=== PATIENT | female | born 1955 | race Caucasian/White ===

== ENCOUNTER → 2017-09-30 13:02 | Outpatient (CLI) | payer OTHER, SELFPAY ==
--- NOTE | 2017-09-30 13:19 | RAD_ITS ---
STUDY: X-RAY CHEST REASON FOR EXAM: Female, 62 years old. Cough and congestion TECHNIQUE: PA and lateral views of the chest. COMPARISON: None. FINDINGS: The lungs are clear and expanded. There is no demonstrated pleural abnormality. Normal size heart. Normal mediastinum and jose a. Normal visualized pulmonary arteries. Normal visualized aortic arch and descending thoracic aorta. There are diffuse degenerative changes of the visualized thoracic spine. Normal visualized ribs, clavicles, and shoulders. There is no demonstrated abnormality of the visualized soft tissue structures of the upper abdomen. RAD/Chest PA and Lateral IMPRESSION: No acute cardiopulmonary process. Electronically Signed: Elvira Santamaria MD at 23:13 EDT Tel , Service support ,
== END ==
PROVIDERS: Family Provider Family Medicine; PCP Family Medicine; Visit Provider Family Medicine
DX: R05 Cough (principal)
CPT/HCPCS: 71046

== ENCOUNTER → 2019-03-02 | Outpatient (CLI) | payer OTHER, SELFPAY ==
--- NOTE | 2019-03-02 11:16 | US_ITS ---
STUDY: THYROID ULTRASOUND REASON FOR EXAM: Female, 63 years old. Gena's thyromegaly TECHNIQUE: Ultrasound evaluation of the thyroid was performed with real-time and static doyle-scale imaging. COMPARISON: None. FINDINGS: RIGHT LOBE: The right lobe of the thyroid gland measures 5.0 x 1.3 x 1.8 cm. There is a homogeneous echotexture. There are no demonstrated solid, cystic or complex lesions. LEFT LOBE: The left lobe of the thyroid gland measures 2.8 x 1.7 x 1.7 cm. There is a homogeneous echotexture. There are no demonstrated solid, cystic or complex lesions. ISTHMUS: The isthmus measures 5 mm . The regional lymph nodes are normal. US/Thyroid IMPRESSION: Normal ultrasound examination of the thyroid. Electronically Signed: Mandi Yousif MD at 8:42 EDT Tel , Service support ,
== END | disposition home or self-care (01) ==
LOC: US 11:10
PROVIDERS: Family Provider Family Medicine; PCP Family Medicine; Referring Provider Family Medicine; Visit Provider Family Medicine
DX: E01.0 Iodine-deficiency related diffuse (endemic) goiter (principal)
CPT/HCPCS: 76536

== ENCOUNTER → 2019-06-18 06:55 | Outpatient (CLI) | payer OTHER, SELFPAY ==
[2019-05-16 11:39] VITALS: BMI 39.9
--- NOTE | 2019-06-18 06:56 | ECHOCS_ITS ---
Version 2 Reason For Study: A fib Procedure This was a 2D Doppler, Color Flow transthoracic echocardiogram. The study was technically difficult. Contrast injection was performed. Exam performed in department. Left Ventricle Based upon the 2D echocardiographic and contrast enhanced images obtained there appears to be grossly normal left ventricular size, wall motion, and systolic function. The estimated ejection fraction is 60 %. Unable to assess diastolic dysfunction. Right Ventricle Normal RV size. Normal systolic function. Atria The left atrium is mildly enlarged. Normal right atrium. No doppler evidence for ASD. Mitral Valve There is no mitral annular calcification. Normal mitral valve. Trivial mitral valve insufficiency. Tricuspid Valve Normal tricuspid valve. Mild tricuspid valve insufficiency. Right ventricular systolic pressure estimated to be 27 mmHg. Aortic Valve Trisinus/trileaflet aortic valve. Normal aortic valve. Pulmonic Valve The pulmonic valve is not well visualized. Great Vessels Normal sized aortic root. Pericardium/Pleural No pericardial effusion. Medication Diluted definity 3ml given slow IV push to enhance endocardial definition. MMode/2D Measurements & Calculations LVIDd: 3.9 cm IVSd: 0.83 cm LAV(MOD-bp): 76.6 ml LVIDs: 2.8 cm LVPWd: 1.1 cm RVDd: 2.8 cm FS: 28.0 % LAV(MOD-bp) Indexed: 31.9 ml/m2 LAV(MOD-sp2): 77.3 ml LAV(MOD-sp4): 75.4 ml LA dimension(2D): 3.9 cm LA A4 area: 22.7 cm2 RA A4 area: 14.5 cm2 Doppler Measurements & Calculations MV E max christoph: 124.3 cm/sec Ao V2 max: 158.8 cm/sec LV V1 max: 139.5 cm/sec Ao max P.2 mmHg LV V1 max P.8 mmHg PA V2 max: 94.3 cm/sec TR max christoph: 242.7 cm/sec TR max P.6 mmHg Interpretation Summary The study was technically difficult. Contrast injection was performed. Based upon the 2D echocardiographic and contrast enhanced images obtained there appears to be grossly normal left ventricular size, wall motion, and systolic function. The estimated ejection fraction is 60 %. The left atrium is mildly enlarged. Trivial mitral valve insufficiency. Mild tricuspid valve insufficiency. Right ventricular systolic pressure estimated to be 27 mmHg. Unable to assess diastolic dysfunction. Ordering Physician: Douglas Zhou Referring Physician: Rosa Ramsay Performed By: Yajaira Boykin RDCS
--- NOTE | 2019-06-18 14:41 | STRESSREP ---
Stress Test Report Date: 06-18-2019 Procedure: Exercise tolerance test/imaging study Indications: Atrial fibrillation; shortness of breath/dyspnea Consent: Per the patient Procedure: The patient exercised on a Mitesh protocol for 2 minutes and 22 seconds completing not completing Stage I achieving a peak heart rate of 148 bpm (94 % predicted maximal heart rate) with a peak blood pressure 148/72 mmHg and a peak MET capacity of 4 METs. The baseline ECG demonstrated atrial fibrillation; low voltage QRS. The peak exercise ECG demonstrated somatic/motion artifact with no obvious ECG changes. There were no cardiac dysrhythmias pretest, during exercise, or recovery. The functional capacity was considered decreased. There was no complaint of chest discomfort during exercise or recovery. The examination was discontinued secondary to dyspnea. Impression: 1. Technically adequate (percent predicted maximal heart rate greater than 85%) exercise tolerance test 2. Peak exercise ECG with somatic/motion artifact with no obvious ECG changes 3. There were no cardiac dysrhythmias pretest, during exercise, or recovery 4. Nuclear images pending Myocardial perfusion imaging study: Technique: The patient was injected with 14.9 mCi of technetium 99m Cardiolite and subsequently rest SPECT Cardiolite nuclear imaging was obtained in the horizontal long, vertical long, and short axis views. The patient exercised on a Mitesh protocol for 2 minutes and 22 seconds completing not completing Stage I achieving a peak heart rate of 148 bpm (94 % predicted maximal heart rate) with a peak blood pressure 148/72 mmHg and a peak MET capacity of 4 METs. The patient was injected with a 44.8 mCi of technetium 99m Cardiolite and subsequently stress SPECT Cardiolite nuclear imaging was obtained in the horizontal long, vertical long, and short axis views. A gated Cardiolite study at peak stress was obtained. Interpretation: Rest and stress SPECT Cardiolite nuclear imaging status post realignment, normalization, and attenuation correction, demonstrates the appearance of relative uniform tracer uptake and myocardial perfusion appearing within normal limits. There is end systolic thickening and brightening. The gated Cardiolite study demonstrates myocardial thickening and inward wall motion. The reported LVEF is 77 %. Impression: 1. Rest and stress SPECT Cardiolite nuclear imaging demonstrate relative uniform tracer uptake and myocardial perfusion appearing within normal limits. 2. The gated Cardiolite study reports an LVEF of 77 %. This note was generated with [employer] software. It may contain incorrect words, spelling, and punctuation that were not noted in checking the note before signing.
== END ==
PROVIDERS: Family Provider Family Medicine; PCP Family Medicine; Referring Provider Internal Medicine Cardiovascular Disease; Visit Provider Internal Medicine Cardiovascular Disease
DX: I48.19 Other persistent atrial fibrillation (principal); R06.02 Shortness of breath; R60.9 Edema, unspecified
CPT/HCPCS: 78452; 93017; 93306; A9500; Q9957; A4216; C8929

== ENCOUNTER 2019-08-02 10:44 | Day surgery (SDC) | payer OTHER, SELFPAY ==
[2019-06-27 07:18] VITALS: BMI 40.4
--- NOTE | 2019-06-27 09:12 | HP_ITS ---
HPI HPI History of Present Illness Surgical H&P: Yes Details: This is a 63-year-old white female who presents today for an outpatient cardiovascular consultation based upon concerns of shortness of breath/dyspnea with exertion and lower extremity edema. She underwent testing with primary care physician and started on diuretic therapy. Her EKG in office on 05/16/2019 showed atrial fibrillation with controlled ventricular response. She denies chest, arm, jaw, or neck discomfort. Her exercise tolerance is stable. She denies symptoms of CHF, palpitations, lightheadedness, dizziness, near syncope, or syncopal episodes. She denies claudication issues. She denies orthopnea, PND, fever, chills, blood in urine, myalgia, or unexplainable fatigue. She continues with SOB on exertion. This is about same as last office visit in May 2019. She states sleeping in a recliner d/t hip pain. She states improved edema since starting Lasix. She states history of hemorrhoids. Intake Vital Signs 06/27/19 Height 5 ft 10 in 06/27/19 Weight: 282 lb 06/27/19 BP 136/76 H 06/27/19 Blood Pressure Location Lt brachial 06/27/19 Position Sitting 06/27/19 Respiration 18 06/27/19 Pulse 100 06/27/19 Pulse Source Monitor 06/27/19 Pulse Oximetry (%) 97 Intake Visit Reasons: 6 wk fu Claim Review Medical Director Required: No Accompanied by: None Is patient in pain?: No Allergies codeine Allergy (Severe, Verified 06/27/19 08:31) GI issues alcohol Adverse Reaction (Severe, Verified 06/27/19 08:31) stomach upset, diarrhea metronidazole [From Flagyl] Adverse Reaction (Severe, Verified 06/27/19 08:31) tongue swelling/bumps Medications amlodipine 5 mg tablet 5 mg PO DAILY 05/10/19 [History Confirmed 05/16/19] bisoprolol 10 mg-hydrochlorothiazide 6.25 mg tablet 2 tab PO DAILY tab 05/10/19 [History Confirmed 06/27/19] levothyroxine 75 mcg tablet 75 mcg PO DAILY 05/10/19 [History Confirmed 06/27/19] meclizine 25 mg tablet 25 mg PO DAILY PRN 05/10/19 [History Confirmed 06/27/19] meloxicam 15 mg tablet 15 mg PO DAILY PRN 05/10/19 [History Confirmed 06/27/19] pravastatin 80 mg tablet 80 mg PO DAILY 05/10/19 [History Confirmed 05/16/19] apixaban 5 mg tablet 5 mg PO BID #60 tab 05/16/19 [Rx Confirmed 06/27/19] ibuprofen 200 mg tablet 200 mg PO Q6H PRN 05/16/19 [History Confirmed 06/27/19] lisinopril 20 mg tablet 20 mg PO DAILY 05/16/19 [History Confirmed 06/27/19] mecobalamin (vitamin B12) 1,000 mcg disintegrating tablet,sublingual 1,000 mcg SUBLINGUAL DAILY 05/16/19 [History Confirmed 06/27/19] furosemide 40 mg tablet 40 mg PO DAILY #30 tab 05/20/19 [Rx Confirmed 06/27/19] [facility] Medical History Family history of congestive heart failure (Acute) Mixed hyperlipidemia (Chronic) Gena's disease (Chronic) Essential hypertension (Chronic) Vertigo (Acute) Surgical History Amblyopia of left eye (Resolved) History of tubal ligation (Resolved) Family History (Updated 06/27/19 @ 08:55 by SOLITARIO Marie) Mother Hypertension CVA (cerebral vascular accident) Subarachnoid hemorrhage Father Heart disease Hypertension CHF (congestive heart failure) Non-Hodgkin lymphoma Grandfather Heart disease CHF (congestive heart failure) Grandmother No problems noted. Social History (Updated 06/27/19 @ 11:57 by SOLITARIO Marie) Smoking Status: Never smoker alcohol intake: never substance use type: does not use caffeine: Yes ROS Const Const: Negative for fatigue, weakness, body ache, fever(s) or chills ENT ENT: Negative for dizziness Cardio Chest Pain: No Palpitations: No Edema: Bilateral (improved) Muscle aches with walking: None Resp Respiratory: Positive for SOB with activity; negative for SOB at rest, SOB orthopnea\SOB lying down or paroxysmal nocturnal dyspnea GI GI: Negative nausea, vomiting blood/hematemesis, bright, red blood in stools or black,tarry stools : Negative for hematuria or frequent nighttime urination/ nocturia Musc Musc: Negative for muscle aches/ myalgia Skin Skin: Negative non-healing lesions or rash Neuro Neuro: Negative for dizziness, lightheadedness, near syncope, syncope, orthostatic symptoms or weakness Endo Endo: Negative for fatigue Allergy Allergy/Immunology: Negative for rash Cardiology Exam Const Appearance: cooperative, healthy appearing, comfortable and no acute distress Nutritional Appearance: well nourished and obese Orientation: alert, awake and oriented x3 Head Head: normal to inspection Ears: hearing grossly normal bilaterally Nose: external nose normal Face and Sinus: face symmetric Mouth: oral mucosae normal Eyes General: appearance normal, both eyes and all related structures Eyelids: eyelids normal EOM: EOM intact bilaterally Neck Neck: normal visual inspection and no JVD Carotids: normal carotid upstroke Chest Chest inspection: normal inspection of the chest, symmetric chest movement and normal respiratory effort; negative cough Auscultation: Bilateral: Clear to Auscultation Cardio Palpation: normal PMI Rate: regular rate Rhythm: irregular rhythm Heart sounds: S1 normal and S2 normal; negative rub, gallop or murmur GI GI: normal to inspection and obese Neuro General: alert, awake, oriented x3 and CN's II-XI intact bilaterally Skin Skin: no rashes or lesions noted Extremities Pulses: Normal: Right Posterior Tibial Pulse, Left Posterior Tibial Pulse, Right Radial Pulse, Left Radial Pulse Lower Extremity Edema: None: Bilateral Psych Psychological: normal affect Assessment & Plan 1. Persistent atrial fibrillation I48.19 Plan Patient was started on anticoagulation therapy after her office visit on 05/16/2019. She does acknowledge tolerating it well. She states of being consistent with such medication. Her heart rate is well controlled today. Her EKG continues to show atrial fibrillation. At this time, she will proceed with cardioversion when she has things in order. She will contact our office when she is ready to schedule. She does understand that she will require a BMP and chest x-ray prior to cardioversion. In the interim, she will continue with beta-lore and anticoagulation therapy. Her echocardiogram in June 2019 showed ejection fraction of 60% and mildly enlarged left atrium. Her stress test in June 2019 showed baseline EKG of atrial fibrillation and was negative for ischemia. Hopefully, by maintaining sinus rhythm her shortness of breath and lower extremity edema also improves. The symptoms will be reassessed post cardioversion along with her rhythm. Orders Orders: 12 Lead EKG performed by [facility] Today Cardioversion Today Basic Metabolic Profile (BMP) Today Chest PA and Lateral Today 2. Essential hypertension I10 Plan Patient's blood pressure is well-controlled. We will continue to monitor. We will not make any medication regimen changes. Orders Orders: Cardioversion Today Basic Metabolic Profile (BMP) Today Chest PA and Lateral Today 3. Mixed hyperlipidemia E78.2 Plan This is managed by primary care physician. She will continue current high-dose statin medication. Orders Orders: Cardioversion Today Basic Metabolic Profile (BMP) Today Chest PA and Lateral Today Plan Detail Additional Comments Thank you for allowing us to participate in the patients plan of care, if you have any questions please do not hesitate to call. This note was generated using a voice recognition system and there may be incorrect words, spelling or punctuation that were not noted when reviewing the office note prior to saving. Follow Up 6 Months (PFM) Coding Level of Care Code Off vis,est,level 4 Diagnoses Persistent atrial fibrillation I48.19 Essential hypertension I10 Mixed hyperlipidemia E78.2 Coding Level of Care Code Off vis,est,level 4 Diagnoses Persistent atrial fibrillation I48.19 Essential hypertension I10 Mixed hyperlipidemia E78.2 Supplemental Info Supplemental Information Echocardiogram from 06/18/2019: Interpretation Summary The study was technically difficult. Contrast injection was performed. Based upon the 2D echocardiographic and contrast enhanced images obtained there appears to be grossly normal left ventricular size, wall motion, and systolic function. The estimated ejection fraction is 60 %. The left atrium is mildly enlarged. Trivial mitral valve insufficiency. Mild tricuspid valve insufficiency. Right ventricular systolic pressure estimated to be 27 mmHg. Unable to assess diastolic dysfunction. Stress Test Report Date: 06-18-2019 Procedure: Exercise tolerance test/imaging study Indications: Atrial fibrillation; shortness of breath/dyspnea Consent: Per the patient Procedure: The patient exercised on a Mitesh protocol for 2 minutes and 22 seconds completing not completing Stage I achieving a peak heart rate of 148 bpm (94 % predicted maximal heart rate) with a peak blood pressure 148/72 mmHg and a peak MET capacity of 4 METs. The baseline ECG demonstrated atrial fibrillation; low voltage QRS. The peak exercise ECG demonstrated somatic/motion artifact with no obvious ECG changes. There were no cardiac dysrhythmias pretest, during exercise, or recovery. The functional capacity was considered decreased. There was no complaint of chest discomfort during exercise or recovery. The examination was discontinued secondary to dyspnea. Impression: 1. Technically adequate (percent predicted maximal heart rate greater than 85%) exercise tolerance test 2. Peak exercise ECG with somatic/motion artifact with no obvious ECG changes 3. There were no cardiac dysrhythmias pretest, during exercise, or recovery 4. Nuclear images pending Myocardial perfusion imaging study: Technique: The patient was injected with 14.9 mCi of technetium 99m Cardiolite and subsequently rest SPECT Cardiolite nuclear imaging was obtained in the horizontal long, vertical long, and short axis views. The patient exercised on a Mitesh protocol for 2 minutes and 22 seconds completing not completing Stage I achieving a peak heart rate of 148 bpm (94 % predicted maximal heart rate) with a peak blood pressure 148/72 mmHg and a peak MET capacity of 4 METs. The patient was injected with a 44.8 mCi of technetium 99m Cardiolite and subsequently stress SPECT Cardiolite nuclear imaging was obtained in the horizontal long, vertical long, and short axis views. A gated Cardiolite study at peak stress was obtained. Interpretation: Rest and stress SPECT Cardiolite nuclear imaging status post realignment, normalization, and attenuation correction, demonstrates the appearance of relative uniform tracer uptake and myocardial perfusion appearing within normal limits. There is end systolic thickening and brightening. The gated Cardiolite study demonstrates myocardial thickening and inward wall motion. The reported LVEF is 77 %. Impression: 1. Rest and stress SPECT Cardiolite nuclear imaging demonstrate relative uniform tracer uptake and myocardial perfusion appearing within normal limits. 2. The gated Cardiolite study reports an LVEF of 77 %. Labs LDL Cholesterol 82 mg/dL (0-130) 07/16/13 HDL Cholesterol 65 mg/dL (40-) 07/16/13 Triglycerides 136 mg/dL (0-199) 07/16/13 VLDL Cholesterol 27 mg/dL (5-40) 07/16/13 Diagnostics Electrocardiogram 06/27/19 Echocardiogram 06/18/19 Stress Test Nuclear Medicine 06/18/19 Stress Test 06/18/19 Chest X-Ray 09/30/17 06/27/19 1157 <Electronically signed by Aaron Vizcarra> Date _ Aaron CROWEC
--- NOTE | 2019-07-25 06:59 | RAD_ITS ---
STUDY: X-RAY CHEST REASON FOR EXAM: Female, 63 years old. PRE CARDIAC INVERSION -- AFIB TECHNIQUE: PA and lateral views of the chest. COMPARISON: Comparison is made with prior study dated September 30, 2017. FINDINGS: The lungs are clear and expanded. There is no demonstrated pleural abnormality. Normal size heart. Normal mediastinum and jose a. Normal visualized pulmonary arteries. Normal visualized aortic arch and descending thoracic aorta. There are diffuse degenerative changes of the visualized thoracic spine. Normal visualized ribs, clavicles, and shoulders. There is no demonstrated abnormality of the visualized soft tissue structures of the upper abdomen. RAD/Chest PA and Lateral IMPRESSION: No acute abnormality is seen. Electronically Signed: Billy Mcallister, at 9:57 EST , Service support ,
[2019-07-25 08:22] LABS: Anion Gap 7 (5-15); BUN 18 mg/dL (7-18); BUN/Creat Ratio 22.3 RATIO (10-20); Calcium,Total 9.3 mg/dL (8.5-10.1); Chloride 103 mmol/L (98-107); Creatinine, Serum 0.81 mg/dL (0.55-1.02); EST Glomerular Filtration Rate 76 mL/min (>60); Est Glom Filt Rate - Afr Amer 92 mL/min (>60); Glucose 106 mg/dL (74-106); Potassium 3.5 mmol/L (3.5-5.1); Sodium Level 141 mmol/L (136-145)
[2019-08-01 07:24] VITALS: BMI 40.4
--- NOTE | 2019-08-02 07:53 | PCM.HP.BLA ---
<Aaron Wright - Last Filed: 08/02/19 12:27> History and Physical Date of Admission: 08/02/19 History of Present Illness Surgical H&P: Yes Details: This is a 63-year-old white female who presents today for a DCCV d/t ongoing concerns of shortness of breath/dyspnea with exertion and lower extremity edema thought to be secondary to PAF. She underwent testing with primary care physician and started on diuretic therapy. Her EKG in office on 05/16/2019 showed atrial fibrillation with controlled ventricular response as well as on 06/27/2019. She denies chest, arm, jaw, or neck discomfort. Her exercise tolerance is stable. She denies symptoms of CHF, palpitations, lightheadedness, dizziness, near syncope, or syncopal episodes. She denies claudication issues. She denies orthopnea, PND, fever, chills, blood in urine, myalgia, or unexplainable fatigue. She continues with SOB on exertion. This is about same as last office visit in May 2019. She states sleeping in a recliner d/t hip pain. She states improved edema since starting Lasix. She states history of hemorrhoids. Intake Vital Signs: See EMR Intake Visit Reasons: DCCV Motor Vehicle [employer] Required: No Accompanied by: None Is patient in pain?: No Allergies codeine Allergy (Severe, Verified 06/27/19 08:31) GI issues alcohol Adverse Reaction (Severe, Verified 06/27/19 08:31) stomach upset, diarrhea metronidazole [From Flagyl] Adverse Reaction (Severe, Verified 06/27/19 08:31) tongue swelling/bumps Medications See EMR [facility] Medical History Family history of congestive heart failure (Acute) Mixed hyperlipidemia (Chronic) Gena's disease (Chronic) Essential hypertension (Chronic) Vertigo (Acute) Surgical History Amblyopia of left eye (Resolved) History of tubal ligation (Resolved) Family History (Updated 06/27/19 @ 08:55 by SOLITARIO Marie) Mother Hypertension CVA (cerebral vascular accident) Subarachnoid hemorrhage Father Heart disease Hypertension CHF (congestive heart failure) Non-Hodgkin lymphoma Grandfather Heart disease CHF (congestive heart failure) Grandmother No problems noted. Social History (Updated 06/27/19 @ 11:57 by SOLITARIO Marie) Smoking Status: Never smoker alcohol intake: never substance use type: does not use caffeine: Yes ROS Const Const: Negative for fatigue, weakness, body ache, fever(s) or chills ENT ENT: Negative for dizziness Cardio Chest Pain: No Palpitations: No Edema: Bilateral (improved) Muscle aches with walking: None Resp Respiratory: Positive for SOB with activity; negative for SOB at rest, SOB orthopnea\SOB lying down or paroxysmal nocturnal dyspnea GI GI: Negative nausea, vomiting blood/hematemesis, bright, red blood in stools or black,tarry stools : Negative for hematuria or frequent nighttime urination/ nocturia Musc Musc: Negative for muscle aches/ myalgia Skin Skin: Negative non-healing lesions or rash Neuro Neuro: Negative for dizziness, lightheadedness, near syncope, syncope, orthostatic symptoms or weakness Endo Endo: Negative for fatigue Allergy Allergy/Immunology: Negative for rash Cardiology Exam Const Appearance: cooperative, healthy appearing, comfortable and no acute distress Nutritional Appearance: well nourished and obese Orientation: alert, awake and oriented x3 Head Head: normal to inspection Ears: hearing grossly normal bilaterally Nose: external nose normal Face and Sinus: face symmetric Mouth: oral mucosae normal Eyes General: appearance normal, both eyes and all related structures Eyelids: eyelids normal EOM: EOM intact bilaterally Neck Neck: normal visual inspection and no JVD Carotids: normal carotid upstroke Chest Chest inspection: normal inspection of the chest, symmetric chest movement and normal respiratory effort; negative cough Auscultation: Bilateral: Clear to Auscultation Cardio Palpation: normal PMI Rate: regular rate Rhythm: irregular rhythm Heart sounds: S1 normal and S2 normal; negative rub, gallop or murmur GI GI: normal to inspection and obese Neuro General: alert, awake, oriented x3 and CN's II-XI intact bilaterally Skin Skin: no rashes or lesions noted Extremities Pulses: Normal: Right Posterior Tibial Pulse, Left Posterior Tibial Pulse, Right Radial Pulse, Left Radial Pulse Lower Extremity Edema: None: Bilateral Psych Psychological: normal affect Assessment & Plan 1. Persistent atrial fibrillation I48.19 Plan Patient has been consistent with anticoagulation. She has been on this without interruption. Her EKG continues to show atrial fibrillation. She will proceed with outpatient cardioversion. She return to office in approximately 1 week to assess her overall rhythm on 08/09/2019 at 10:15 AM. Based on EKG report, further recommendation will be made. 2. Essential hypertension I10 Plan Patient's blood pressure is well-controlled. We will continue to monitor. We will not make any medication regimen changes. 3. Mixed hyperlipidemia E78.2 Plan This is managed by primary care physician. She will continue current high-dose statin medication. Plan Detail Additional Comments Thank you for allowing us to participate in the patients plan of care, if you have any questions please do not hesitate to call. This note was generated using a voice recognition system and there may be incorrect words, spelling or punctuation that were not noted when reviewing the office note prior to saving. Supplemental Info Supplemental Information Echocardiogram from 06/18/2019: Interpretation Summary The study was technically difficult. Contrast injection was performed. Based upon the 2D echocardiographic and contrast enhanced images obtained there appears to be grossly normal left ventricular size, wall motion, and systolic function. The estimated ejection fraction is 60 %. The left atrium is mildly enlarged. Trivial mitral valve insufficiency. Mild tricuspid valve insufficiency. Right ventricular systolic pressure estimated to be 27 mmHg. Unable to assess diastolic dysfunction. Stress Test Report Date: 06-18-2019 Procedure: Exercise tolerance test/imaging study Indications: Atrial fibrillation; shortness of breath/dyspnea Consent: Per the patient Procedure: The patient exercised on a Mitesh protocol for 2 minutes and 22 seconds completing not completing Stage I achieving a peak heart rate of 148 bpm (94 % predicted maximal heart rate) with a peak blood pressure 148/72 mmHg and a peak MET capacity of 4 METs. The baseline ECG demonstrated atrial fibrillation; low voltage QRS. The peak exercise ECG demonstrated somatic/motion artifact with no obvious ECG changes. There were no cardiac dysrhythmias pretest, during exercise, or recovery. The functional capacity was considered decreased. There was no complaint of chest discomfort during exercise or recovery. The examination was discontinued secondary to dyspnea. Impression: 1. Technically adequate (percent predicted maximal heart rate greater than 85%) exercise tolerance test 2. Peak exercise ECG with somatic/motion artifact with no obvious ECG changes 3. There were no cardiac dysrhythmias pretest, during exercise, or recovery 4. Nuclear images pending Myocardial perfusion imaging study: Technique: The patient was injected with 14.9 mCi of technetium 99m Cardiolite and subsequently rest SPECT Cardiolite nuclear imaging was obtained in the horizontal long, vertical long, and short axis views. The patient exercised on a Mitesh protocol for 2 minutes and 22 seconds completing not completing Stage I achieving a peak heart rate of 148 bpm (94 % predicted maximal heart rate) with a peak blood pressure 148/72 mmHg and a peak MET capacity of 4 METs. The patient was injected with a 44.8 mCi of technetium 99m Cardiolite and subsequently stress SPECT Cardiolite nuclear imaging was obtained in the horizontal long, vertical long, and short axis views. A gated Cardiolite study at peak stress was obtained. Interpretation: Rest and stress SPECT Cardiolite nuclear imaging status post realignment, normalization, and attenuation correction, demonstrates the appearance of relative uniform tracer uptake and myocardial perfusion appearing within normal limits. There is end systolic thickening and brightening. The gated Cardiolite study demonstrates myocardial thickening and inward wall motion. The reported LVEF is 77 %. Impression: 1. Rest and stress SPECT Cardiolite nuclear imaging demonstrate relative uniform tracer uptake and myocardial perfusion appearing within normal limits. 2. The gated Cardiolite study reports an LVEF of 77 %. Labs LDL Cholesterol 82 mg/dL (0-130) 07/16/13 HDL Cholesterol 65 mg/dL (40-) 07/16/13 Triglycerides 136 mg/dL (0-199) 07/16/13 VLDL Cholesterol 27 mg/dL (5-40) 07/16/13 Diagnostics Electrocardiogram 06/27/19 Echocardiogram 06/18/19 Stress Test Nuclear Medicine 06/18/19 Stress Test 06/18/19 Chest X-Ray 09/30/17 <Douglas Zhou - Last Filed: 08/02/19 15:37> History and Physical I have re-examined the patient. There are no clinical changes since date of exam.
--- NOTE | 2019-08-02 14:05 | PCM.OP.PRO ---
Procedure Report Date of Procedure: 08/02/19 CONSCIOUS SEDATION REPORT DATE OF SERVICE: August 02, 2019 BRIEF HISTORY OF PRESENT ILLNESS: The patient is a 63-year-old female who presented to [facility] for an elective outpatient cardioversion due to underlying atrial fibrillation. The patient has never previously undergone a cardioversion. She denies any previous anesthetic complications in the past. She is currently anticoagulated on Eliquis. Her last surface echocardiogram revealed an ejection fraction of approximately 77%. She has never been diagnosed with COPD, asthma or obstructive sleep apnea. PHYSICAL EXAMINATION: VITAL SIGNS: Reviewed and were acceptable. GENERAL: The patient is an obese female, in no apparent distress, speaking in full sentences. HEENT: Normocephalic, atraumatic. Hasmukh membranes are moist and pink. Good mouth opening noted. Trachea is midline. Good neck mobility. CHEST: S1, S2 irregularly irregular. No murmurs, rubs or gallops were noted. LUNGS: Clear to auscultation bilaterally without appreciable wheezes, rales or rhonchi. ABDOMEN: Soft, nontender, nondistended. Positive bowel sounds. EXTREMITIES: There is no clubbing, cyanosis or edema. ASA Class: II DESCRIPTION OF PROCEDURE: After confirmation of informed consent, the patient's anesthesia plan was reviewed in detail. Propofol was chosen. Risks and benefits were reviewed and the patient agreed to proceed. At 1301, the patient was given her first bolus of propofol. In total, the patient required 80 mg of propofol throughout the procedure in order to facilitate 2 attempts at cardioversion, one at 200 J and a second at 300 J, the latter of which was successful in restoring normal sinus rhythm. The patient was monitored until 1311, at which time she reached her baseline mental status and function. The patient tolerated the procedure well. COMPLICATIONS: None ESTIMATED BLOOD LOSS: None RECOMMENDATIONS: Okay to recover in usual fashion. Code Visit 9xxxx: Other Procedure See Report - [id number]
--- NOTE | 2019-08-02 14:07 | CARDIOVERS ---
Cardioversion Cardioversion: Date: 08-02-2019 Procedure: Synchronized Biphasic DC Cardioversion Indications: Atrial fibrillation Consent: Per the Patient Anesthesia: per Dr. Zamorano of pulmonology and critical care medicine with propofol 80 mg IV push total Procedure: Synchronized Biphasic DC Cardioversion: 200 J x 1: Result: Atrial fibrillation Synchronized biphasic DC cardioversion: 300 J x 1: Result: Sinus rhythm/sinus bradycardia Complications: no apparent complications This note was generated with [employer]US Qation software. It may contain incorrect words, spelling, and punctuation that were not noted in checking the note before signing.
== END 2019-08-02 14:14 | disposition home or self-care (01) ==
PROVIDERS: Nurse Practitioner Family; PCP Internal Medicine; Referring Provider Internal Medicine Cardiovascular Disease; Visit Provider Internal Medicine Cardiovascular Disease
DX: I48.19 Other persistent atrial fibrillation (principal); I10 Essential (primary) hypertension; E78.2 Mixed hyperlipidemia; E66.9 Obesity, unspecified
CPT/HCPCS: 36415; 71046; 80048; 92960; 93005; J7040

== ENCOUNTER → 2019-09-21 | Outpatient (CLI) | payer OTHER, SELFPAY ==
[2019-08-20 08:52] VITALS: BMI 40.4
[2019-09-21 07:49] LABS: Absolute Lymphocyte Count 2.37 X10^3/uL (0.83-4.51); Absolute Neutrophil Count 4.4 X10^3/uL (2.0-7.7); Basophil# 0.08 X10^3/uL; Eosinophil# 0.21 X10^3/uL; Eosinophils% 2.7 % (0-5); Hematocrit 43.2 % (37-47); Hemoglobin 14.5 g/dL (12.0-15.0); Lymphocyte # 2.37 X10^3/ul (4.0); Lymphocyte % 29.9 % (19-41); Mean Corp Hgb Conc 33.6 g/dL (32-36); Mean Corpuscular Hgb 29.2 pg (27.0-32.0); Mean Corpuscular Volume 86.9 fL (81-99); Mean Platelet Vol. 9.1 fl (6.2-12.0); Monocyte# 0.81 X10^3/uL; Monocyte% 10.2 % (0-10); NRBC Flagged by Analyzer 0 % (0-5); Neutrophil % 55.6 % (47-70); Platelet Count 344 K/mm3 (150-450); RBC Distribution Width CV 12.5 % (11.6-14.6); RBC Distribution Width SD 39.8 fl (35.1-43.9); Red Blood Count 4.97 M/mm3 (4.2-5.4); White Blood Count 7.9 K/mm3 (4.4-11.0)
[2019-09-21 08:25] LABS: ALB/GLOB Ratio 1.2 RATIO (0.9-2.4); AST(SGOT) 22 U/L (15-37); Alanine Aminotransfer ALT/SGPT 36 U/L (13-56); Albumin, Serum 3.8 g/dL (3.2-5.0); Alkaline Phosphatase 67 U/L (45-117); Anion Gap 8 (5-15); BUN 13 mg/dL (7-18); BUN/Creat Ratio 16.6 RATIO (10-20); Calcium,Total 9.1 mg/dL (8.5-10.1); Chloride 100 mmol/L (98-107); Cholesterol 211 mg/dL (200); Creatinine, Serum 0.78 mg/dL (0.55-1.02); EST Glomerular Filtration Rate 78 mL/min (>60); Est Glom Filt Rate - Afr Amer 95 mL/min (>60); Globulin 3.3 g/dL (2.2-4.2); Glucose 109 mg/dL (74-106); High Density Lipoprotein 83 mg/dL; Potassium 3.6 mmol/L (3.5-5.1); Protein, Total 7.1 g/dL (6.4-8.2); Sodium Level 137 mmol/L (136-145); Thyroid Stim Hormone (TSH) 4.67 uIU/mL (0.358-3.74); Triglycerides 184 mg/dL; Very Low Density Lipoprotein 37 mg/dL (5-40)
== END | disposition home or self-care (01) ==
LOC: LAB 07:37
PROVIDERS: PCP Internal Medicine; Referring Provider Internal Medicine; Visit Provider Internal Medicine
DX: E03.9 Hypothyroidism, unspecified (principal); E78.5 Hyperlipidemia, unspecified; I10 Essential (primary) hypertension
CPT/HCPCS: 36415; 80053; 80061; 84443; 85025

== ENCOUNTER → 2019-10-10 | Outpatient (CLI) | payer OTHER, SELFPAY ==
[2019-09-26 14:19] VITALS: BMI 40.4
--- NOTE | 2019-10-10 11:50 | RAD_ITS ---
STUDY: X-RAY - RIGHT KNEE REASON FOR EXAM: Female, 64 years old. PAIN TECHNIQUE: 4 view(s) of the knee. COMPARISON: None. FINDINGS: Normal visualized distal femur. Normal visualized proximal tibia and fibula. Normal proximal tibiofibular articulation. Normal medial femorotibial compartment. Normal lateral femorotibial compartment. Normal patellofemoral articulation. There is a 3.3 cm x 0.4 cm linear calcification in the soft tissues adjacent to the medial femoral condyle. 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 RAD/Knee 4 or More Views IMPRESSION: Soft tissue calcification along the medial femoral condyle as described. This is suggestive of Tawnya-Stieda disease. Electronically Signed: Billy Mcallister, at 12:52 EDT , Service support ,
== END | disposition home or self-care (01) ==
PROVIDERS: PCP Internal Medicine; Referring Provider Internal Medicine; Visit Provider Internal Medicine
DX: M25.561 Pain in right knee (principal)
CPT/HCPCS: 73564

== ENCOUNTER → 2019-11-02 | Outpatient (CLI) | payer OTHER, SELFPAY ==
[2019-09-26 14:19] VITALS: BMI 40.4
[2019-11-02 12:11] LABS: Thyroid Stim Hormone (TSH) 2.73 uIU/mL (0.358-3.74)
== END | disposition home or self-care (01) ==
LOC: LAB 09:28
PROVIDERS: PCP Internal Medicine; Visit Provider Internal Medicine
DX: E03.9 Hypothyroidism, unspecified (principal)
CPT/HCPCS: 36415; 84443

== ENCOUNTER → 2019-12-26 | Outpatient (CLI) | payer OTHER, SELFPAY ==
[2019-12-26 14:27] VITALS: BMI 40.4
[2019-12-26 17:17] LABS: Anion Gap 5 (5-15); BUN 15 mg/dL (7-18); BUN/Creat Ratio 21.1 RATIO (10-20); Calcium,Total 9.2 mg/dL (8.5-10.1); Chloride 98 mmol/L (98-107); Creatinine, Serum 0.71 mg/dL (0.55-1.02); EST Glomerular Filtration Rate 88 mL/min (>60); Est Glom Filt Rate - Afr Amer 106 mL/min (>60); Glucose 112 mg/dL (74-106); Magnesium 2.1 mg/dL (1.6-2.6); Potassium 2.9 mmol/L (3.5-5.1); Sodium Level 134 mmol/L (136-145); T4 Free Direct 1.41 ng/dL (0.76-1.46); Thyroid Stim Hormone (TSH) 2.04 uIU/mL (0.358-3.74)
== END | disposition home or self-care (01) ==
LOC: BIMLAB 14:47
PROVIDERS: PCP Internal Medicine; Referring Provider Internal Medicine; Visit Provider Internal Medicine
DX: E03.9 Hypothyroidism, unspecified (principal); I10 Essential (primary) hypertension; I48.19 Other persistent atrial fibrillation; I48.91 Unspecified atrial fibrillation
CPT/HCPCS: 36415; 80048; 83735; 84439; 84443

== ENCOUNTER → 2019-12-27 | Outpatient (CLI) | payer OTHER, SELFPAY ==
[2019-12-26 14:27] VITALS: BMI 40.4
--- NOTE | 2019-12-27 11:03 | EKG12_ITS ---
Test Reason : AFIB Blood Pressure : / mmHG Vent. Rate : 083 BPM Atrial Rate : 147 BPM P-R Int : 000 ms QRS Dur : 088 ms QT Int : 334 ms P-R-T Axes : 000 017 049 degrees QTc Int : 392 ms Atrial fibrillation Low voltage QRS Abnormal ECG Confirmed by CITLALLI RIVERA ([id number]), restaurant expeditor FAINA CAMPOS ([id number] on 12/30/2019 12:06:21 PM Referred By: Sivan Weiss Confirmed By:CITLALLI RIVERA
== END | disposition home or self-care (01) ==
LOC: CVS 11:03
PROVIDERS: PCP Internal Medicine; Referring Provider Internal Medicine; Visit Provider Internal Medicine
DX: I48.19 Other persistent atrial fibrillation (principal); I10 Essential (primary) hypertension
CPT/HCPCS: 93005

== ENCOUNTER → 2020-01-09 15:20 | Outpatient (CLI) | payer OTHER, SELFPAY ==
[2019-12-26 14:27] VITALS: BMI 40.4
[2020-01-09 17:09] LABS: Anion Gap 7 (5-15); BUN 14 mg/dL (7-18); BUN/Creat Ratio 16.9 RATIO (10-20); Calcium,Total 9.1 mg/dL (8.5-10.1); Chloride 105 mmol/L (98-107); Creatinine, Serum 0.83 mg/dL (0.55-1.02); EST Glomerular Filtration Rate 74 mL/min (>60); Est Glom Filt Rate - Afr Amer 89 mL/min (>60); Glucose 90 mg/dL (74-106); Potassium 4.2 mmol/L (3.5-5.1); Sodium Level 140 mmol/L (136-145)
== END ==
PROVIDERS: PCP Internal Medicine; Referring Provider Internal Medicine; Visit Provider Internal Medicine
DX: I10 Essential (primary) hypertension (principal); E87.6 Hypokalemia
CPT/HCPCS: 36415; 80048

== ENCOUNTER → 2020-01-21 | Outpatient (CLI) | payer OTHER, SELFPAY ==
[2020-01-16 12:49] VITALS: BMI 41.9
== END | disposition home or self-care (01) ==
LOC: PSN 12:58
PROVIDERS: PCP Internal Medicine; Referring Provider Nurse Practitioner Family; Visit Provider Nurse Practitioner Family
DX: I48.19 Other persistent atrial fibrillation (principal)
CPT/HCPCS: 93225; 93226

== ENCOUNTER → 2020-01-23 | Outpatient (CLI) | payer OTHER, SELFPAY ==
[2020-01-16 12:49] VITALS: BMI 41.9
[2020-01-23 17:38] LABS: Anion Gap 6 (5-15); BUN 11 mg/dL (7-18); BUN/Creat Ratio 13.8 RATIO (10-20); Calcium,Total 9.1 mg/dL (8.5-10.1); Chloride 108 mmol/L (98-107); EST Glomerular Filtration Rate 77 mL/min (>60); Est Glom Filt Rate - Afr Amer 93 mL/min (>60); Glucose 115 mg/dL (74-106); Potassium 3.8 mmol/L (3.5-5.1); Sodium Level 142 mmol/L (136-145)
== END | disposition home or self-care (01) ==
LOC: BIMLAB 15:00
PROVIDERS: PCP Internal Medicine; Referring Provider Internal Medicine; Visit Provider Internal Medicine
DX: I10 Essential (primary) hypertension (principal)
CPT/HCPCS: 36415; 80048

== ENCOUNTER → 2020-06-25 15:50 | Outpatient (CLI) | payer OTHER, SELFPAY ==
[2020-03-26 14:58] VITALS: BMI 42.3
[2020-06-25 17:37] LABS: ALB/GLOB Ratio 1.1 RATIO (0.9-2.4); AST(SGOT) 23 U/L (15-37); Alanine Aminotransfer ALT/SGPT 36 U/L (13-56); Albumin, Serum 3.7 g/dL (3.2-5.0); Alkaline Phosphatase 85 U/L (45-117); Anion Gap 5 (5-15); BUN 13 mg/dL (7-18); BUN/Creat Ratio 14.9 RATIO (10-20); Calcium,Total 9.3 mg/dL (8.5-10.1); Chloride 105 mmol/L (98-107); Creatinine, Serum 0.87 mg/dL (0.55-1.02); EST Glomerular Filtration Rate 70 mL/min (>60); Est Glom Filt Rate - Afr Amer 84 mL/min (>60); Globulin 3.4 g/dL (2.2-4.2); Glucose 103 mg/dL (74-106); Potassium 4.1 mmol/L (3.5-5.1); Protein, Total 7.1 g/dL (6.4-8.2); Sodium Level 140 mmol/L (136-145)
== END ==
PROVIDERS: PCP Internal Medicine; Referring Provider Internal Medicine; Visit Provider Internal Medicine
DX: I10 Essential (primary) hypertension (principal); I48.91 Unspecified atrial fibrillation
CPT/HCPCS: 36415; 80053

== ENCOUNTER → 2020-07-11 09:33 | Outpatient (CLI) | payer OTHER, SELFPAY ==
[2020-03-26 14:58] VITALS: BMI 42.3
--- NOTE | 2020-07-11 09:35 | BI_ITS ---
MAMMOGRAPHY - BILATERAL SCREENING REASON FOR EXAM: Female, 64 years old. Routine annual screening examination. PERTINENT HISTORY: Non-contributory. TECHNIQUE: Digital bilateral breast shahzad (3D mammographic acquisition) in the CC and MLO projections. 2-D mediolateral oblique (MLO) and craniocaudad (CC) views of both breasts were obtained. CAD: Full Field Digital Mammography with Computer Added Detection was performed. COMPARISON: Comparison is made with prior outside examination dated 06/30/2016. FINDINGS: Breast Composition: The breasts are almost entirely fatty. There are no dominant masses or suspicious calcifications. No other significant abnormalities are identified. There has been no significant change since the prior study. BI/SCRN MAMM (CAD)W/SHAHZAD BILAT IMPRESSION: Stable bilateral screening mammogram. Yearly follow-up mammogram recommended. (A) ASSESSMENT CATEGORY: BIRADS Category 1: Negative. A letter regarding these results will be sent to the patient by the facility within 30 days. Approximately 10% of breast cancers are not detected by mammography. A normal mammogram should not delay biopsy of a clinically suspicious abnormality. [id number] Electronically Signed: Billy Mcallister MD at 8:38 EST , Service support ,
== END ==
PROVIDERS: PCP Internal Medicine; Referring Provider Internal Medicine; Visit Provider Internal Medicine
DX: Z12.31 Encounter for screening mammogram for malignant neoplasm of breast (principal)
CPT/HCPCS: 77063; 77067

== ENCOUNTER → 2020-09-24 14:37 | Outpatient (CLI) | payer MEDICARE, SELFPAY ==
[2020-09-24 14:09] VITALS: BMI 42.5
[2020-09-24 16:50] LABS: Absolute Lymphocyte Count 1.53 X10^3/uL (0.83-4.51); Absolute Neutrophil Count 5.5 X10^3/uL (2.0-7.7); Basophil# 0.06 X10^3/uL; Basophil% 0.8 % (0-1); Eosinophils% 1.3 % (0-5); Hematocrit 45.6 % (37-47); Hemoglobin 14.8 g/dL (12.0-15.0); Lymphocyte # 1.53 X10^3/ul (0.83-4.51); Lymphocyte % 19.3 % (19-41); Mean Corp Hgb Conc 32.5 g/dL (32-36); Mean Corpuscular Hgb 28.8 pg (27.0-32.0); Mean Corpuscular Volume 88.7 fL (81-99); Mean Platelet Vol. 9.9 fl (6.2-12.0); Monocyte# 0.77 X10^3/uL; Monocyte% 9.7 % (0-10); NRBC Flagged by Analyzer 0 % (0-5); Neutrophil # 5.45 X10^3/uL (2.7-7.7); Neutrophil % 68.5 % (47-70); Platelet Count 334 K/mm3 (150-450); RBC Distribution Width CV 12.8 % (11.6-14.6); RBC Distribution Width SD 41.7 fl (35.1-43.9); Red Blood Count 5.14 M/mm3 (4.2-5.4); White Blood Count 7.9 K/mm3 (4.4-11.0)
[2020-09-24 17:15] LABS: ALB/GLOB Ratio 1.1 RATIO (0.9-2.4); AST(SGOT) 21 U/L (15-37); Alanine Aminotransfer ALT/SGPT 30 U/L (13-56); Albumin, Serum 3.7 g/dL (3.2-5.0); Alkaline Phosphatase 68 U/L (45-117); Anion Gap 5 (5-15); BUN 13 mg/dL (7-18); BUN/Creat Ratio 16.9 RATIO (10-20); Calcium,Total 9.4 mg/dL (8.5-10.1); Chloride 106 mmol/L (98-107); Creatinine, Serum 0.77 mg/dL (0.55-1.02); EST Glomerular Filtration Rate 80 mL/min (>60); Est Glom Filt Rate - Afr Amer 97 mL/min (>60); Globulin 3.5 g/dL (2.2-4.2); Glucose 97 mg/dL (74-106); Potassium 3.8 mmol/L (3.5-5.1); Protein, Total 7.2 g/dL (6.4-8.2); Sodium Level 139 mmol/L (136-145); Thyroid Stim Hormone (TSH) 2.02 uIU/mL (0.358-3.74)
== END ==
PROVIDERS: PCP Internal Medicine; Referring Provider Internal Medicine; Visit Provider Internal Medicine
DX: I10 Essential (primary) hypertension (principal); I48.19 Other persistent atrial fibrillation
CPT/HCPCS: 36415; 80053; 84443; 85025

== ENCOUNTER → 2020-10-14 20:33 | Outpatient (CLI) | payer MEDICARE, SELFPAY ==
[2020-09-24 14:09] VITALS: BMI 42.5
== END ==
PROVIDERS: PCP Internal Medicine; Visit Provider Internal Medicine
DX: G47.33 Obstructive sleep apnea (adult) (pediatric) (principal)
CPT/HCPCS: 95810

== ENCOUNTER → 2020-11-18 08:57 | Outpatient (CLI) | payer MEDICARE, SELFPAY ==
[2020-10-26 15:44] VITALS: BMI 42.2
== END ==
PROVIDERS: PCP Internal Medicine; Visit Provider Internal Medicine
DX: G47.33 Obstructive sleep apnea (adult) (pediatric) (principal)

== ENCOUNTER → 2020-12-24 15:03 | Outpatient (CLI) | payer MEDICARE, SELFPAY ==
[2020-12-24 14:38] VITALS: BMI 42.2
[2020-12-24 17:08] LABS: Anion Gap 9 (5-15); BUN 9 mg/dL (7-18); BUN/Creat Ratio 13.2 RATIO (10-20); Calcium,Total 9.4 mg/dL (8.5-10.1); Chloride 104 mmol/L (98-107); Creatinine, Serum 0.68 mg/dL (0.55-1.02); EST Glomerular Filtration Rate 92 mL/min (>60); Est Glom Filt Rate - Afr Amer 111 mL/min (>60); Glucose 80 mg/dL (74-106); Sodium Level 142 mmol/L (136-145)
== END ==
PROVIDERS: PCP Internal Medicine; Referring Provider Internal Medicine; Visit Provider Internal Medicine
DX: I10 Essential (primary) hypertension (principal)
CPT/HCPCS: 36415; 80048

== ENCOUNTER → 2021-02-01 08:36 | Outpatient (CLI) | payer MEDICARE, SELFPAY ==
[2021-02-01 10:28] LABS: AST(SGOT) 22 U/L (15-37); Alanine Aminotransfer ALT/SGPT 29 U/L (13-56); Albumin, Serum 3.8 g/dL (3.2-5.0); Alkaline Phosphatase 78 U/L (45-117); Bilirubin, Direct 0.25 mg/dL (0.00-0.30); Cholesterol 170 mg/dL (200); Globulin 3.4 g/dL (2.2-4.2); High Density Lipoprotein 66 mg/dL; Protein, Total 7.2 g/dL (6.4-8.2); Triglycerides 156 mg/dL; Very Low Density Lipoprotein 31 mg/dL (5-40)
== END ==
PROVIDERS: PCP Internal Medicine; Referring Provider Nurse Practitioner Gerontology; Visit Provider Nurse Practitioner Gerontology
DX: E78.2 Mixed hyperlipidemia (principal)
CPT/HCPCS: 36415; 80061; 80076

== ENCOUNTER → 2021-05-25 10:34 | Outpatient (CLI) | payer MEDICARE, SELFPAY ==
[2021-05-25 12:39] LABS: Anion Gap 8 (5-15); BUN 11 mg/dL (7-18); BUN/Creat Ratio 14.4 RATIO (10-20); Calcium,Total 9.9 mg/dL (8.5-10.1); Chloride 104 mmol/L (98-107); Creatinine, Serum 0.76 mg/dL (0.55-1.02); EST Glomerular Filtration Rate 81 mL/min (>60); Est Glom Filt Rate - Afr Amer 98 mL/min (>60); Glucose 94 mg/dL (74-106); Sodium Level 141 mmol/L (136-145)
== END ==
PROVIDERS: PCP Internal Medicine; Referring Provider Internal Medicine; Visit Provider Internal Medicine
DX: I10 Essential (primary) hypertension (principal)
CPT/HCPCS: 36415; 80048

== ENCOUNTER 2021-06-22 10:05 | Day surgery (SDC) | payer MEDICARE, SELFPAY ==
--- NOTE | 2021-06-10 15:09 | RAD_ITS ---
STUDY: X-RAY CHEST REASON FOR EXAM: Female, 65 years old. Atrial Fibrillation-Cardioversion TECHNIQUE: PA and lateral views of the chest. COMPARISON: 07/25/2019 FINDINGS: The lungs are clear and expanded. There is no demonstrated pleural abnormality. Normal size heart. Normal mediastinum and jose a. Normal visualized pulmonary arteries. Normal visualized aortic arch and descending thoracic aorta. There are diffuse degenerative changes of the visualized thoracic spine. Normal visualized ribs, clavicles, and shoulders. There is no demonstrated abnormality of the visualized soft tissue structures of the upper abdomen. RAD/Chest PA and Lateral IMPRESSION: No acute cardiopulmonary process. Electronically Signed: Vaibhav Mars MD ([place]) at 15:39 EST , Service support ,
[2021-06-10 16:10] LABS: Anion Gap 7 (5-15); BUN 11 mg/dL (7-18); BUN/Creat Ratio 15.4 RATIO (10-20); Calcium,Total 9.5 mg/dL (8.5-10.1); Chloride 107 mmol/L (98-107); Creatinine, Serum 0.71 mg/dL (0.55-1.02); EST Glomerular Filtration Rate 87 mL/min (>60); Est Glom Filt Rate - Afr Amer 106 mL/min (>60); Glucose 102 mg/dL (74-106); Potassium 3.8 mmol/L (3.5-5.1); Sodium Level 143 mmol/L (136-145)
[2021-06-21 08:35] VITALS: BMI 43.2
--- NOTE | 2021-06-22 10:32 | HP.PCM_ITS ---
History and Physical Date of Admission: 06/22/21 [facility] [id number] [place], [place] [phone] OFFICE VISITDate of Service: 06/10/21 MR#:[id number]:[id number]: JACKELYN HOBBSRep #:[id number] Provider: JIMMY Montemayor/Sex: 65/F [facility] HPI History of Present Illness Surgical H&P: Yes Details: This is a 65-year-old white female who presents today and updated history and physical for an upcoming cardioversion. This is scheduled for 06/22/2020. She does have a history of persistent atrial fibrillation, hypertension and hyperlipidemia. She subsequently proceeded with synchronized biphasic DC cardioversion in July 2019. Sometime thereafter there was a concern she had return to atrial fibrillation. She had a Holter monitor performed in January 2020. She was noted to be in atrial fibrillation. Patient saw EP in November of this year. She states she is not a candidate for EP due to her not feeling palpitations. He recommended that she follow her sleep apnea treatment, and possible cardioversion after shes been following the sleep apnea treatment for a while. She states she has been wearing her cpap for 6 months now. She would like to pursue a DCCV. Pt notes that she sometimes has SOB and does have some vague left sided pain. She is not aware of her palpitations, she is only aware of this when she checks her pulse. She is using her CPAP. She does not have any lightheadedn ess/dizziness. She did have some sinus congestion around thanksgiving that was contributing to some lightheadedness. She does sometimes have edema. Intake Vital Signs 06/10/21 14:17 Height 5 ft 9 in Weight: 293 lb BMI 43.2 Intake Visit Reasons: UPDATE H&P DCCV PER KRR Allergies codeine Allergy (Severe, Verified 06/10/21 14:17) GI issues adhesive tape Allergy (Unknown, Verified 06/10/21 14:17) blisters alcohol Adverse Reaction (Severe, Verified 06/10/21 14:17) stomach upset, diarrhea metronidazole [From Flagyl] Adverse Reaction (Severe, Verified 06/10/21 14:17) tongue swelling/bumps holter monitor pads Allergy (Intermediate, Uncoded 06/10/21 14:17) Skin Irritation Medications cyanocobalamin (vitamin B-12) 1,000 mcg capsule 1,000 mcg PO DAILY 09/24/20 [History Confirmed 06/10/21] levothyroxine 75 mcg tablet 75 mcg PO DAILY #90 tab 09/24/20 [Rx Confirmed 06/10/21] potassium chloride 20 mEq tablet,extended release 40 meq PO BID 90 Days #360 tab 09/24/20 [Rx Confirmed 06/10/21] pravastatin 80 mg tablet 80 mg PO DAILY #90 tab 09/24/20 [Rx Confirmed 06/10/21] apixaban 5 mg tablet 5 mg PO BID #180 tab 09/25/20 [Rx Confirmed 06/10/21] furosemide 40 mg tablet 40 mg PO DAILY #90 tab 09/25/20 [Rx Confirmed 06/10/21] hydrochlorothiazide 12.5 mg tablet 12.5 mg PO DAILY #90 tab 09/25/20 [Rx Confirmed 06/10/21] lisinopril 10 mg tablet 10 mg PO DAILY #90 tab 09/25/20 [Rx Confirmed 06/10/21] metoprolol succinate 50 mg tablet,extended release 24 hr 50 mg PO DAILY #90 tab 09/25/20 [Rx Confirmed 06/10/21] [facility] Medical History Carpal tunnel syndrome Colon cancer screening Dry skin dermatitis Essential hypertension Family history of congestive heart failure Finger wound, simple, open Gena's disease History of cardioversion (~08/02/19) Hypothyroidism Mixed hyperlipidemia Plantar fasciitis Seasonal allergies Vertigo Surgical History Amblyopia of left eye History of tubal ligation Family History Mother Hypertension CVA (cerebral vascular accident) Subarachnoid hemorrhage Father Heart disease Hypertension CHF (congestive heart failure) Non-Hodgkin lymphoma Grandfather Heart disease CHF (congestive heart failure) Grandmother No problems noted. Social History Smoking Status: Never smoker alcohol intake: never substance use type: does not use caffeine: Yes what type of physical activity do you participate in: none ROS Const Const: Negative for fatigue, weakness, fever(s), headache(s), chills, frequent falls, weight gain or weight loss Eyes Eyes: Negative for blind spots, loss of peripheral vision, transient loss of vision, blurry vision, change in vision, double vision, floaters or tunnel vision ENT ENT: Negative for headache(s), dizziness, Nosebleed/epistaxis, balance problems or neck pain Cardio Chest Pain: No Palpitations: No Edema: None Muscle aches with walking: None Resp Respiratory: Positive for paroxysmal nocturnal dyspnea (She wears a CPAP at night); Negative for SOB with activity, SOB at rest or SOB orthopnea\SOB lying down GI GI: Negative nausea, vomiting, heartburn, bloating, vomiting blood/hematemesis, bright, red blood in stools or black,tarry stools Musc Musc: Negative for muscle aches/ myalgia, muscle weakness, joint pain or balance problems Neuro Neuro: Negative for dizziness, lightheadedness, near syncope, syncope, orthostatic symptoms, frequent falls, headache(s), weakness, blurry vision or double vision Giuseppe Hematologic/Lymphatic: Negative for easy bleeding or easy bruising Endo Endo: Negative for fatigue Cardiology Exam Const Appearance: cooperative, healthy appearing, comfortable, no acute distress and well developed Nutritional Appearance: obese Orientation: alert, awake and oriented x3 Head Head: normal to inspection Ears: hearing grossly normal bilaterally Nose: external nose normal Face and Sinus: face symmetric Mouth: oral mucosae normal, lip normal and moist mucous membranes Eyes General: appearance normal, both eyes and all related structures Eyelids: eyelids normal Conjunctivae: conjunctivae normal Pupils: PERRL EOM: EOM intact bilaterally Neck Neck: normal visual inspection and trachea midline; Negative no JVD Carotids: Negative bruit Chest Chest inspection: normal inspection of the chest Auscultation: Bilateral: Clear to Auscultation Cardio Palpation: normal PMI Rate: tachycardic Rhythm: irregularly irregular Heart sounds: S1 normal and S2 normal; Negative rub, gallop or murmur GI GI: soft, no hepatosplenomegaly, bowel sounds present and obese Neuro General: patient alert, patient awake, patient oriented x3 and CN's II-XI intact bilaterally Extremities Pulses: Normal: Right Posterior Tibial Pulse, Left Posterior Tibial Pulse, Right Radial Pulse and Left Radial Pulse Lower Extremity Edema: None: Bilateral Psych Psychological: normal affect Supplemental Info Supplemental Information Transthoracic echocardiogram: 06-18-2019 Interpretation Summary The study was technically difficult. Contrast injection was performed. Based upon the 2D echocardiographic and contrast enhanced images obtained there appears to be grossly normal left ventricular size, wall motion, and systolic function. The estimated ejection fraction is 60 %. The left atrium is mildly enlarged. Trivial mitral valve insufficiency. Mild tricuspid valve insufficiency. Right ventricular systolic pressure estimated to be 27 mmHg. Unable to assess diastolic dysfunction. Stress Test Report Date: 06-18-2019 Procedure: Exercise tolerance test/imaging study Indications: Atrial fibrillation; shortness of breath/dyspnea Consent: Per the patient Procedure: The patient exercised on a Mitesh protocol for 2 minutes and 22 seconds completing not completing Stage I achieving a peak heart rate of 148 bpm (94 % predicted maximal heart rate) with a peak blood pressure 148/72 mmHg and a peak MET capacity of 4 METs. The baseline ECG demonstrated atrial fibrillation; low voltage QRS. The peak exercise ECG demonstrated somatic/motion artifact with no obvious ECG changes. There were no cardiac dysrhythmias pretest, during exercise, or recovery. The functional capacity was considered decreased. There was no complaint of chest discomfort during exercise or recovery. The examination was discontinued secondary to dyspnea. Impression: 1. Technically adequate (percent predicted maximal heart rate greater than 85%) exercise tolerance test 2. Peak exercise ECG with somatic/motion artifact with no obvious ECG changes 3. There were no cardiac dysrhythmias pretest, during exercise, or recovery 4. Nuclear images pending Myocardial perfusion imaging study: Technique: The patient was injected with 14.9 mCi of technetium 99m Cardiolite and subsequently rest SPECT Cardiolite nuclear imaging was obtained in the horizontal long, vertical long, and short axis views. The patient exercised on a Mitesh protocol for 2 minutes and 22 seconds completing not completing Stage I achieving a peak heart rate of 148 bpm (94 % predicted maximal heart rate) with a peak blood pressure 148/72 mmHg and a peak MET capacity of 4 METs. The patient was injected with a 44.8 mCi of technetium 99m Cardiolite and subsequently stress SPECT Cardiolite nuclear imaging was obtained in the horizontal long, vertical long, and short axis views. A gated Cardiolite study at peak stress was obtained. Interpretation: Rest and stress SPECT Cardiolite nuclear imaging status post realignment, normalization, and attenuation correction, demonstrates the appearance of relative uniform tracer uptake and myocardial perfusion appearing within normal limits. There is end systolic thickening and brightening. The gated Cardiolite study demonstrates myocardial thickening and inward wall motion. The reported LVEF is 77 %. Impression: 1. Rest and stress SPECT Cardiolite nuclear imaging demonstrate relative uniform tracer uptake and myocardial perfusion appearing within normal limits. 2. The gated Cardiolite study reports an LVEF of 77 %. Holter monitor: 01-21-2020: Atrial fibrillation Rare PVCs Labs: LDL Cholesterol 73 mg/dL (0-130) HDL Cholesterol 66 mg/dL (40-) Triglycerides 156 mg/dL (-199) VLDL Cholesterol 31 mg/dL (5-40) Diagnostics: Electrocardiogram Chest X-Ray Pulmonary: No Data to Display Assessment and Plan Assessment and Plan (1) Persistent atrial fibrillation: Status: Chronic Comment: DCCV on 08/02/2019; Plan: Patient has been anticoagulated for at least 3 weeks. She will continue with her current rate limiting medications. She is agreeable to proceed with a cardioversion. Patient is aware that she may not convert to sinus rhythm. She is aware that if she does not convert to sinus rhythm that she will maintain atrial fibrillation as she is not symptomatic. She is agreeable with this. Patient Instructions: Your procedure is 06/22 at 1200 with an arrival time of 1030. 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 (2) Essential hypertension: Status: Chronic Plan: Blood pressure is well controlled on current medications, we do not recommend a ny changes at this time. (3) Mixed hyperlipidemia: Status: Chronic Plan: Recent lipid profile demonstrates a total cholesterol 170, HDL 66, LDL 73. Patient will continue with high intensity statin. Plan Details Additional Comments: Thank you for allowing me to participate in the care of your patient. Please don't hesitate to call if any issues arise. This note was generated using a voice recognition system and there may be incorrect words, spelling, or punctuation that were not noted when reviewing the office note prior to saving. Follow Up: 06/10/21 (keep as is) COVID (Procedure Consent) Procedure Criteria Procedure Criteria: Yes Elective The surgeon/proceduralist and patient have discussed in detail the risk of exposure to and/or potential harm posed by the COVID-19 virus with having a surgery/procedure at this time versus the risk of delaying the surgery/procedure. It is not possible to know either the risk of delaying the surgery or procedure or chance of getting an infection with perfect accuracy, but a joint decision was made between the patient and the surgeon/proceduralist to proceed at this time with the scheduled surgery/procedure as indicated on the consent form. Coding Level of Care Code Off vis,est,level 4 Diagnoses Persistent atrial fibrillation I48.19 Essential hypertension I10 Mixed hyperlipidemia E78.2 Coding Level of Care Code Off vis,est,level 4 Diagnoses Persistent atrial fibrillation I48.19 Essential hypertension I10 Mixed hyperlipidemia E78.2 06/15/21 1303<Electronically signed by Breanna MARQUEZ>Date ___ Breanna MARQUEZ Cosigner Signature:Date (if applicable) CC: Dr. Sivan Weiss MD ~ Assessment & Plan Addt'l Comments I have re-examined the patient. There are no clinical changes since date of exam
--- NOTE | 2021-06-22 12:10 | CARDIOVERS_ITS ---
Cardioversion Cardioversion: Date: 06-22-2021 Procedure: Synchronized Biphasic DC Cardioversion Indications: Atrial fibrillation Consent: Per the Patient Anesthesia: per Dr. Juarez of pulmonology and critical care medicine with propofol 80 mg IV push total Procedure: Synchronized Biphasic DC Cardioversion: 200 J x 1: Result: Atrial fibrillation Synchronized biphasic DC cardioversion: 300 J x 1: Result: Sinus rhythm; PACs Complications: no apparent complications This note was generated with [employer] software. It may contain incorrect words, spelling, and punctuation that were not noted in checking the note before signing.
--- NOTE | 2021-06-22 12:31 | PCM.OP.PRO ---
Assessment & Plan Assessment/Plan (1) Persistent atrial fibrillation: Procedure Report Date of Procedure: 06/22/21 CONSCIOUS SEDATION REPORT BRIEF HISTORY OF PRESENT ILLNESS: The patient is a 65-year-old female who presented to [facility] for an elective outpatient cardioversion due to underlying atrial fibrillation. The patient reports no PO intake since midnight, but is currently therapeutic on anticoagulation. The patient does not have a history of ALEJANDRA. The patient reports no history of smoking and COPD. The patient denies any recent constitutional symptoms such as fevers, chills, nausea or vomiting. The patient denies previous applicable anesthetic complications. Patient's last known ejection fraction was 60%. Patient did report taking Eliquis on the day of the procedure. Patient had had a previous cardioversion in July 2019 using propofol and tolerated this well. PHYSICAL EXAMINATION: VITAL SIGNS: Reviewed and were acceptable. GENERAL: The patient is a female, in no apparent distress, speaking in full sentences. HEENT: Normocephalic, atraumatic. Mucous membranes are moist and pink. Good mouth opening noted. Trachea is midline. Good neck mobility. MP IV CHEST: S1, S2 irregularly irregular. No murmurs, rubs or gallops were noted. LUNGS: Clear to auscultation bilaterally without appreciable wheezes, rales or rhonchi. ABDOMEN: Soft, nontender, nondistended. Positive bowel sounds. EXTREMITIES: There is no clubbing, cyanosis or edema. ASA Class: II DESCRIPTION OF PROCEDURE: After confirmation of informed consent, the patient's anesthesia plan was reviewed in detail. Propofol was chosen. Risks and benefits were reviewed and the patient agreed to proceed. At 11:58 AM, the patient was given 40 mg of propofol. The patient required a total of 80 mg of propofol throughout the procedure to achieve appropriate sedation. The patient achieved an appropriate level of sedation and received 2 attempt s synchronized cardioversion, at 200 J and [address] Zhou at the bedside. This was successful in achieving normal sinus rhythm. The patient was monitored until 12:15 PM, at which time the patient reached their baseline mental status and function. The patient tolerated the procedure well. COMPLICATIONS: None ESTIMATED BLOOD LOSS: None RECOMMENDATIONS: Okay to recover in usual fashion. Procedures Pulmonary [id number]: [id number] Con Sedation
== END 2021-06-22 23:59 | disposition home or self-care (01) ==
LOC: CLSP 10:07
PROVIDERS: Nurse Practitioner Gerontology; PCP Internal Medicine; Referring Provider Internal Medicine Cardiovascular Disease; Visit Provider Internal Medicine Cardiovascular Disease
DX: I48.19 Other persistent atrial fibrillation (principal); I49.3 Ventricular premature depolarization; G47.30 Sleep apnea, unspecified; E78.2 Mixed hyperlipidemia; I10 Essential (primary) hypertension; E06.3 Autoimmune thyroiditis; E03.9 Hypothyroidism, unspecified; Z79.899 Other long term (current) drug therapy; Z79.01 Long term (current) use of anticoagulants
CPT/HCPCS: 36415; 71046; 80048; 92960; 93005; J7040

== ENCOUNTER 2021-07-01 02:59 | Emergency (ER) | payer MEDICARE, SELFPAY ==
[2021-07-01 03:00] VITALS: BP 170/76; PULSE 79; RESP 16; TEMP 36.3; O2SAT 100; BMI 51.4
--- NOTE | 2021-07-01 03:04 | EKG12_ITS ---
Test Reason : DYSRHYTHMIA Blood Pressure : / mmHG Vent. Rate : 057 BPM Atrial Rate : 043 BPM P-R Int : 000 ms QRS Dur : 098 ms QT Int : 448 ms P-R-T Axes : 000 -19 -26 degrees QTc Int : 436 ms Sinus bradycardia Low voltage QRS Abnormal ECG Confirmed by AYANNA VARGHESE, MEREDITH ([id number]), legal editor RYAN LOPEZ ([id number]) on 07/05/2021 10:57:22 AM Referred By: LLOYD Confirmed By:MEREDITH URENA MD
--- NOTE | 2021-07-01 03:04 | RAD_ITS ---
STUDY: X-RAY CHEST REASON FOR EXAM: Female, 65 years old. Chest pain TECHNIQUE: Single AP portable view of the chest. COMPARISON: 06/10/2021 FINDINGS: Mild prominence of interstitial markings throughout both lungs, unchanged. No confluent airspace opacity. No pleural effusion or pneumothorax. Normal size heart. Normal mediastinum and jose a. Normal visualized pulmonary arteries. Normal visualized aortic arch and descending thoracic aorta. There are diffuse degenerative changes of the visualized thoracic spine. Normal visualized ribs, clavicles, and shoulders. There is no demonstrated abnormality of the visualized soft tissue structures of the upper abdomen. RAD/Chest 1 View (Portable) IMPRESSION: Mild chronic interstitial change with no acute cardiopulmonary disease Electronically Signed: Tre Quick MD at 3:32 EST ,
[2021-07-01] MEDS: Aspirin 81 MG TAB.CHEW 324 MG PO (03:09)
--- NOTE | 2021-07-01 03:09 | ED.VIS.CHEST ---
HPI History of Present Illness Chief Complaint: Chest Pain Informant: patient Onset/Context/Timing Onset: Today Activity at onset: gradual Timing: Waxes and wanes Quality: Positive for Pressure Location: Left Chest Current Severity: Mild Maximum Severity: Mild Narrative Narrative: Patient presents via EMS for evaluation of left-sided chest pain. Patient states that she was going to sleep tonight she felt as if there was a light pressure over her upper left breast. She got up and started reading about warning signs for chest pain and states she started developing some tingling and soreness in her left arm. She does note that this is around the site of her recent IV. Patient has a history of atrial fibrillation and underwent cardioversion on June 22. She had a stress test in June 2019 that was unremarkable. [facility] Medical History (Updated 07/01/21 @ 05:[address] Shannon Fishman MD) Carpal tunnel syndrome Colon cancer screening Essential hypertension Family history of congestive heart failure Gena's disease History of cardioversion (~08/02/19) Hypothyroidism Mixed hyperlipidemia Persistent atrial fibrillation Plantar fasciitis Seasonal allergies Vertigo Home Medications cyanocobalamin (vitamin B-12) 1,000 mcg capsule 1,000 mcg PO DAILY 09/24/20 [History Last Taken Unknown] levothyroxine 75 mcg tablet 75 mcg PO DAILY #90 tab 09/24/20 [Rx Last Taken 06/22/21] potassium chloride 20 mEq tablet,extended release 40 meq PO BID 90 Days #360 tab 09/24/20 [Rx Last Taken Unknown] pravastatin 80 mg tablet 80 mg PO DAILY #90 tab 09/24/20 [Rx Last Taken Unknown] apixaban 5 mg tablet 5 mg PO BID #180 tab 09/25/20 [Rx Last Taken 06/22/21] furosemide 40 mg tablet 40 mg PO DAILY #90 tab 09/25/20 [Rx Last Taken Unknown] hydrochlorothiazide 12.5 mg tablet 12.5 mg PO DAILY #90 tab 09/25/20 [Rx Last Taken Unknown] lisinopril 10 mg tablet 10 mg PO DAILY #90 tab 09/25/20 [Rx Last Taken 06/22/21] metoprolol succinate 50 mg tablet,extended release 24 hr 50 mg PO DAILY #90 tab 09/25/20 [Rx Last Taken 06/22/21] Allergy/AdvReac Type Severity Reaction Status Date / Time codeine Allergy Severe GI issues Verified 07/01/21 03:03 adhesive tape Allergy Unknown blisters Verified 07/01/21 03:03 alcohol AdvReac Severe stomach Verified 07/01/21 03:03 upset, diarrhea metronidazole [From Flagyl] AdvReac Severe tongue Verified 07/01/21 03:03 swelling/bumps holter monitor pads Allergy Intermediate Skin Uncoded 07/01/21 03:03 Irritation Family History Mother Hypertension CVA (cerebral vascular accident) Subarachnoid hemorrhage Father Heart disease Hypertension CHF (congestive heart failure) Non-Hodgkin lymphoma Grandfather Heart disease CHF (congestive heart failure) Grandmother No problems noted. Surgical History Amblyopia of left eye History of tubal ligation Social History Smoking Status: Never smoker alcohol intake: never substance use type: does not use caffeine: Yes what type of physical activity do you participate in: none ROS ROS ED Constitutional Constitutional ED: Denies chills or fever(s) Eyes Eyes: Denies change in vision ENT ENT ED: Denies sore throat Cardiovascular Cardiovascular: Reports chest pain Respiratory/Chest Respiratory/Chest: Denies cough or dyspnea Gastrointestinal Gastrointestinal: Denies abdominal pain, diarrhea, nausea or vomiting Genitourinary Genitourinary ED: Denies dysuria Musculoskeletal Musculoskeletal: Reports myalgias; Denies back pain or neck pain Integumentary Denies rash Neurologic Neurologic: Reports paresthesias; Denies headache(s) or weakness Psychiatric Psychiatric: Denies anxiety or depression Allergic/Immunologic Allergic/Immunologic ED: Denies urticaria EXAM Physical Exam Const Vital Signs: 07/01/21 03:00 07/01/21 03:13 07/01/21 04:04 Temperature 97.3 F L Temperature Source Temporal Pulse Rate 79 52 L Respiratory Rate 16 18 Blood Pressure 170/76 H 143/61 H Blood Pressure Mean 107 88 Pulse Ox 100 98 Oxygen Delivery Method Room Air Room Air Room Air 07/01/21 05:38 Temperature Temperature Source Pulse Rate 60 Respiratory Rate 18 Blood Pressure 144/62 H Blood Pressure Mean 89 Pulse Ox 96 Oxygen Delivery Method Room Air Positive obese Nutritional Appearance: obese HEENT normocephalic and atraumatic Eyes PERRL and EOMs intact bilaterally Neck supple Chest Wall inspection of chest normal and palpation of chest normal Resp normal respiratory effort Effort and Inspection: respiratory distress Cardio Rhythm: abnormal rhythm irregularly irregular GI soft to palpation and non-tender Extremity normal to inspection Neuro oriented x3 and no sensory deficits noted Sensorium / Orientation: awake and alert Motor Exam: strength 5/5 throughout Psych mental status grossly normal Skin no rashes or lesions noted MDM MDM MDM Narrative Medical decision making narrative: Lab work, EKG, chest x-ray obtained. Lab Data Attestation: I reviewed the patient's lab results. Labs: Laboratory Results - last 24 hr 07/01/21 07/01/21 07/01/21 03:10 03:10 05:10 WBC 7.3 RBC 4.97 Hgb 15.0 Hct 43.2 MCV 86.9 MCH 30.2 MCHC 34.7 RDW Std Deviation 40.6 RDW Coeff of Nellie 13.0 Plt Count 293 MPV 10.2 Immature Gran % (Auto) 0.300 Neut % (Auto) 61.9 Lymph % (Auto) 26.5 [place] % (Auto) 8.3 Eos % (Auto) 2.3 Baso % (Auto) 0.7 Absolute Neuts (auto) 4.5 Absolute Lymphs (auto) 1.93 Nucleated RBC % 0 Sodium 139 Potassium 4.2 Chloride 103 Carbon Dioxide 28.0 Anion Gap 8 BUN 13 Creatinine 0.75 Estim Creat Clear Calc 64.58 Est GFR (MDRD) Af Amer 100 Est GFR (MDRD) Non-Af 83 BUN/Creatinine Ratio 17.4 Glucose 102 Calcium 9.5 Troponin I High Sens 5 5 Radiography Chest X-Ray - ED: 1 View, Read by ED Physician and Chronic Changes Diagnostic Testing: Clinical Impression(s) from Imaging Studies Chest X-Ray 07/01/21 03:04 IMPRESSION: Mild chronic interstitial change with no acute cardiopulmonary disease Electronically Signed: Tre Quick MD at 3:32 EST , EKG Initial EKG: Interpretation: Atrial Fibrillation (A. fib at 57 with no acute ischemia.) Treatment and Re-Evaluation Comments:: Repeat evaluation patient sleeping comfortably. She states that the chest pain had resolved prior to the ambulance bringing her to the hospital. She had no further chest pain here. Blood pressure was initially quite elevated on arrival but has come down on its own with systolic readings in the 130s and 140s. I did discuss with the patient that her lab work is unremarkable including her repeat troponin. She is back in atrial fibrillation. She was scheduled to come in today for a EKG post ablation. I advised her to call the office this morning to see if she still needs to come in for that if they can use the EKG that we did tonight. Patient voices understanding and agreement. Discharge Plan Triage Chief Complaint: Chest Pain ED Provider: Shannon Fishman Dx/Rx/DC Orders Clinical Impression: Chest pain, Atrial fibrillation Instructions: ED AFIB, ED Chest Pain, Noncardiac Prescriptions: No Action cyanocobalamin (vitamin B-12) 1,000 mcg capsule 1,000 mcg PO DAILY RF: 0 levothyroxine 75 mcg tablet 75 mcg PO DAILY Qty: 90 RF: 3 potassium chloride 20 mEq tablet extended release 40 meq PO BID 90 Days Qty: 360 RF: 2 pravastatin 80 mg tablet 80 mg PO DAILY Qty: 90 RF: 3 Eliquis 5 mg tablet 5 mg PO BID Qty: 180 RF: 3 furosemide 40 mg tablet 40 mg PO DAILY Qty: 90 RF: 3 hydrochlorothiazide 12.5 mg tablet 12.5 mg PO DAILY Qty: 90 RF: 3 lisinopril 10 mg tablet 10 mg PO DAILY Qty: 90 RF: 4 metoprolol succinate 50 mg tablet extended release 24 hr 50 mg PO DAILY Qty: 90 RF: 3 Primary Care Provider: Sivan Weiss Referrals: Sivan Weiss MD [Primary Care Provider] - Douglas Zhou MD [STAFF PHYSICIAN] - 1-2 Weeks Disposition Disposition: Home, Self Care
[2021-07-01 03:26] LABS: Absolute Lymphocyte Count 1.93 X10^3/uL (0.83-4.51); Absolute Neutrophil Count 4.5 X10^3/uL (2.0-7.7); Basophil# 0.05 X10^3/uL; Basophil% 0.7 % (0-1); Eosinophil# 0.17 X10^3/uL; Eosinophils% 2.3 % (0-5); Hematocrit 43.2 % (37-47); Lymphocyte # 1.93 X10^3/ul (0.83-4.51); Lymphocyte % 26.5 % (19-41); Mean Corp Hgb Conc 34.7 g/dL (32-36); Mean Corpuscular Hgb 30.2 pg (27.0-32.0); Mean Corpuscular Volume 86.9 fL (81-99); Mean Platelet Vol. 10.2 fl (6.2-12.0); Monocyte% 8.3 % (0-10); NRBC Flagged by Analyzer 0 % (0-5); Neutrophil % 61.9 % (47-70); Platelet Count 293 K/mm3 (150-450); RBC Distribution Width SD 40.6 fl (35.1-43.9); Red Blood Count 4.97 M/mm3 (4.2-5.4); White Blood Count 7.3 K/mm3 (4.4-11.0)
[2021-07-01 03:59] LABS: Anion Gap 8 (5-15); BUN 13 mg/dL (7-18); BUN/Creat Ratio 17.4 RATIO (10-20); Calcium,Total 9.5 mg/dL (8.5-10.1); Chloride 103 mmol/L (98-107); Creatinine, Serum 0.75 mg/dL (0.55-1.02); EST Glomerular Filtration Rate 83 mL/min (>60); Est Glom Filt Rate - Afr Amer 100 mL/min (>60); Estimated Creatinine Clearance 64.58 ml/min; Glucose 102 mg/dL (74-106); Potassium 4.2 mmol/L (3.5-5.1); Sodium Level 139 mmol/L (136-145); Troponin-I HS 5 pg/mL (3.0-54.0)
[2021-07-01 04:04] VITALS: BP 143/61; PULSE 52; RESP 18; O2SAT 98
[2021-07-01 05:38] VITALS: BP 144/62; PULSE 60; RESP 18; O2SAT 96
[2021-07-01 05:39] LABS: Troponin-I HS 5 pg/mL (3.0-54.0)
[2021-07-01 05:53] VITALS: BP 153/76; PULSE 52; RESP 18; O2SAT 96
== END 2021-07-01 05:56 | disposition home or self-care (01) ==
PROVIDERS: Emergency Provider Emergency Medicine; PCP Internal Medicine; Visit Provider Emergency Medicine
DX: I48.19 Other persistent atrial fibrillation (principal); I10 Essential (primary) hypertension; E06.3 Autoimmune thyroiditis; E03.9 Hypothyroidism, unspecified; E78.2 Mixed hyperlipidemia; Z79.899 Other long term (current) drug therapy; Z79.01 Long term (current) use of anticoagulants
CPT/HCPCS: 71045; 80048; 84484; 85025; 93005; 99285; A4216

== ENCOUNTER 2021-07-15 11:56 | Outpatient (CLI) | payer MEDICARE, SELFPAY | END 2021-07-15 23:59 | disposition home or self-care (01) | LOC: PSN 11:57 | PROVIDERS: PCP Internal Medicine; Referring Provider Nurse Practitioner Gerontology; Visit Provider Nurse Practitioner Gerontology | DX: R00.1 Bradycardia, unspecified (principal) | CPT/HCPCS: 93225; 93226 ==

== ENCOUNTER 2021-08-12 13:36 | Outpatient (CLI) | payer MEDICARE, SELFPAY ==
[2021-08-12 15:24] LABS: Anion Gap 8 (5-15); BUN 15 mg/dL (7-18); BUN/Creat Ratio 18.3 RATIO (10-20); Calcium,Total 9.5 mg/dL (8.5-10.1); Chloride 104 mmol/L (98-107); Creatinine, Serum 0.82 mg/dL (0.55-1.02); EST Glomerular Filtration Rate 74 mL/min (>60); Est Glom Filt Rate - Afr Amer 90 mL/min (>60); Glucose 114 mg/dL (74-106); Potassium 3.9 mmol/L (3.5-5.1); Sodium Level 139 mmol/L (136-145); Thyroid Stim Hormone (TSH) 3.21 uIU/mL (0.358-3.74)
[2021-08-12 15:38] LABS: Vitamin D,25 Hydroxy 20.8 ng/mL
== END 2021-08-12 23:59 | disposition home or self-care (01) ==
LOC: BIMLAB 13:37
PROVIDERS: PCP Internal Medicine; Referring Provider Internal Medicine; Visit Provider Internal Medicine
DX: I48.19 Other persistent atrial fibrillation (principal); E03.9 Hypothyroidism, unspecified; E55.9 Vitamin D deficiency, unspecified
CPT/HCPCS: 36415; 80048; 82306; 83735; 84443

== ENCOUNTER 2021-08-24 08:34 | Outpatient (CLI) | payer MEDICARE, SELFPAY ==
[2021-08-24 10:00] LABS: AST(SGOT) 16 U/L (15-37); Alanine Aminotransfer ALT/SGPT 29 U/L (13-56); Albumin, Serum 3.8 g/dL (3.2-5.0); Alkaline Phosphatase 67 U/L (45-117); Bilirubin, Direct 0.24 mg/dL (0.00-0.30); Cholesterol 175 mg/dL (200); Globulin 3.4 g/dL (2.2-4.2); High Density Lipoprotein 65 mg/dL; Protein, Total 7.2 g/dL (6.4-8.2); Triglycerides 160 mg/dL; Very Low Density Lipoprotein 32 mg/dL (5-40)
== END 2021-08-24 23:59 | disposition home or self-care (01) ==
LOC: MTLAB 08:35
PROVIDERS: PCP Internal Medicine; Referring Provider Nurse Practitioner Gerontology; Visit Provider Nurse Practitioner Gerontology
DX: E78.00 Pure hypercholesterolemia, unspecified (principal); E78.2 Mixed hyperlipidemia
CPT/HCPCS: 36415; 80061; 80076

== ENCOUNTER 2021-09-03 09:58 | Day surgery (SDC) | payer MEDICARE, SELFPAY ==
[2021-09-02 06:39] VITALS: BMI 49.4
--- NOTE | 2021-09-02 11:46 | PCM.HP.BLA ---
History and Physical Date of Admission: 09/03/21 [facility] [address] [place] [address] [phone] OFFICE VISITDate of Service: 08/12/21 MR#:[id number]:[id number]: JACKELYN HOBBSRep #:[id number] Provider: SOLITARIO Howe/Sex: 65/F [facility] HPI History of Present Illness Details: This is a 65-year-old white female who presents to the office today for a cardiovascular visit. She has a history of persistent atrial fibrillation, hypertension and hyperlipidemia. She subsequently proceeded with synchronized biphasic DC cardioversion in July 2019. Sometime thereafter there was a concern she had return to atrial fibrillation. She had a Holter monitor performed in January 2020. She was noted to be in atrial fibrillation. Patient saw EP in November of 2020. She states she is not a candidate for EP due to her not feeling palpitations. He recommended that she follow her sleep apnea treatment, and possible cardioversion after shes been following the sleep apnea treatments. She underwent a cardioversion on 06/22/21. Her Holter monitor from 07/15/2021 demonstrated normal sinus rhythm/sinus bradycardia. Her minimum heart rate was 34, maximum heart rate 103 average heart rate 53 bpm. From a cardiac standpoint, the patient is doing well. She denies any palpitations, chest pain, pressure or heaviness. She does have an occasional SOB with heavy lifting or going up stairs-nothing new or worsening. She does state this is improving. She denies Orthopnea, and PND. She does wear her CPAP nightly. She does not have bleeding issues; no blood in urine, stool or nosebleeds. She denies any decrease in energy level, myalgias, or claudication. She does not have edema, or sudden weight gain. She states that she has not had any dizziness/lightheadedness until this morning, in the office. She states she took her blood pressure medications about an hour ago, and with hurrying to get to her appointment she felt dizzy, lightheaded, and diaphoretic. Her blood pressure did drop to 99/70, heart rate 145. Her EKG demonstrated Atrial Fibrillation heart rate 154. She states she is now feeling better- heart rate- 98, blood pressure-117/86. She denies syncopal or near syncopal episodes, and headaches. She states she is scheduled to see her PCP this afternoon. Intake Vital Signs 08/12/21 10:49 08/12/21 11:18 08/12/21 11:35 Height 5 ft 4 in Weight: 288 lb BMI 49.4 BP 108/72 99/70 117/86 H Blood Pressure Location Lt brachial Lt brachial Lt brachial Position Sitting Sitting Sitting Respiration 18 Pulse 93 145 H 98 Pulse Source Monitor Monitor Monitor Pulse Oximetry (%) 96 95 Intake Visit Reasons: 3 M FU Jalousie Installer Required: No Accompanied by: None Is patient in pain?: No Allergies codeine Allergy (Severe, Verified 08/12/21 11:19) GI issues adhesive tape Allergy (Unknown, Verified 08/12/21 11:19) blisters alcohol Adverse Reaction (Severe, Verified 08/12/21 11:19) stomach upset, diarrhea metronidazole [From Flagyl] Adverse Reaction (Severe, Verified 08/12/21 11:19) tongue swelling/bumps holter monitor pads Allergy (Intermediate, Uncoded 07/01/21 03:03) Skin Irritation Medications cyanocobalamin (vitamin B-12) 1,000 mcg capsule 1,000 mcg PO DAILY 09/24/20 [History Confirmed 08/12/21] levothyroxine 75 mcg tablet 75 mcg PO DAILY #90 tab 09/24/20 [Rx Confirmed 08/12/21] apixaban 5 mg tablet 5 mg PO BID #180 tab 09/25/20 [Rx Confirmed 08/12/21] furosemide 40 mg tablet 40 mg PO DAILY #90 tab 09/25/20 [Rx Confirmed 08/12/21] hydrochlorothiazide 12.5 mg tablet 12.5 mg PO DAILY #90 tab 09/25/20 [Rx Confirmed 08/12/21] metoprolol succinate 50 mg tablet,extended release 24 hr 50 mg PO DAILY #90 tab 09/25/20 [Rx Confirmed 08/12/21] potassium chloride 20 mEq tablet,extended release 40 meq PO BID 90 Days #360 tab 07/05/21 [Rx Confirmed 08/12/21] famotidine 20 mg tablet 20 mg PO DAILY 08/12/21 [History Confirmed 08/12/21] pravastatin 80 mg tablet 80 mg PO DAILY #90 tab 08/12/21 [Rx Confirmed 08/12/21] lisinopril 10 mg tablet 10 mg PO BID #60 tab 08/13/21 [Rx] [facility] Medical History (Updated 08/12/21 @ 15:[address] Sivan Weiss MD) Carpal tunnel syndrome Colon cancer screening Essential hypertension Family history of congestive heart failure Gena's disease History of cardioversion (~08/02/19) Hypothyroidism Mixed hyperlipidemia Persistent atrial fibrillation Plantar fasciitis Seasonal allergies Vertigo Vitamin D deficiency Surgical History (Reviewed 08/12/21 @ 11:30 by Heather Douglas UNDER WATER ASSISTANT, UNDER WATER ASSISTANT-C) Amblyopia of left eye History of tubal ligation Family History (Reviewed 08/12/21 @ 11:30 by Heather Douglas UNDER WATER ASSISTANT, UNDER WATER ASSISTANT-C) Mother Hypertension CVA (cerebral vascular accident) Subarachnoid hemorrhage Father Heart disease Hypertension CHF (congestive heart failure) Non-Hodgkin lymphoma Grandfather Heart disease CHF (congestive heart failure) Grandmother No problems noted. Social History Smoking Status: Never smoker alcohol intake: never substance use type: does not use caffeine: Yes what type of physical activity do you participate in: none ROS Const Const: Negative for fatigue, weakness, fever(s), headache(s), chills, frequent falls, weight gain or weight loss Eyes Eyes: Negative for blind spots, loss of peripheral vision, transient loss of vision, blurry vision, change in vision, double vision, floaters or tunnel vision ENT ENT: Negative for headache(s), dizziness, Nosebleed/epistaxis, balance problems or neck pain Cardio Chest Pain: No Palpitations: No Edema: None Muscle aches with walking: None Resp Respiratory: Positive for SOB with activity (Nothing new or worsening-it is improving); Negative for SOB at rest or SOB orthopnea\SOB lying down GI GI: Negative nausea, vomiting, heartburn, bloating, vomiting blood/hematemesis, bright, red blood in stools or black,tarry stools Musc Musc: Negative for muscle aches/ myalgia, muscle weakness, joint pain or balance problems Neuro Neuro: Negative for dizziness, lightheadedness, near syncope, syncope, orthostatic symptoms, frequent falls, headache(s), weakness, blurry vision or double vision Giuseppe Hematologic/Lymphatic: Negative for easy bleeding or easy bruising Endo Endo: Negative for fatigue Cardiology Exam Const Appearance: cooperative and no acute distress Orientation: alert and oriented x3 Head Head: normal to inspection Ears: hearing grossly normal bilaterally Nose: external nose normal Face and Sinus: face symmetric Eyes General: appearance normal, both eyes and all related structures Eyelids: eyelids normal Conjunctivae: conjunctivae normal Pupils: PERRL and pupil size EOM: EOM intact bilaterally Neck Neck: normal visual inspection Carotids: Negative bruit Chest Chest inspection: normal inspection of the chest and normal respiratory effort Auscultation: Bilateral: Clear to Auscultation Cardio Palpation: normal PMI Rate: regular rate Rhythm: irregularly irregular Heart sounds: S1 normal and S2 normal; Negative rub, gallop or murmur GI GI: normal to inspection and soft; Negative no hepatosplenomegaly Neuro General: patient alert, patient oriented x3 and CN's II-XI intact bilaterally Skin Skin: no rashes or lesions noted Extremities Pulses: Normal: Right Posterior Tibial Pulse, Left Posterior Tibial Pulse, Right Radial Pulse and Left Radial Pulse Lower Extremity Edema: None: Bilateral Psych Psychological: normal affect Supplemental Info Supplemental Information Transthoracic echocardiogram: 06-18-2019 Interpretation Summary The study was technically difficult. Contrast injection was performed. Based upon the 2D echocardiographic and contrast enhanced images obtained there appears to be grossly normal left ventricular size, wall motion, and systolic function. The estimated ejection fraction is 60 %. The left atrium is mildly enlarged. Trivial mitral valve insufficiency. Mild tricuspid valve insufficiency. Right ventricular systolic pressure estimated to be 27 mmHg. Unable to assess diastolic dysfunction. Stress Test Report Date: 06-18-2019 Procedure: Exercise tolerance test/imaging study Indications: Atrial fibrillation; shortness of breath/dyspnea Consent: Per the patient Procedure: The patient exercised on a Mitesh protocol for 2 minutes and 22 seconds completing not completing Stage I achieving a peak heart rate of 148 bpm (94 % predicted maximal heart rate) with a peak blood pressure 148/72 mmHg and a peak MET capacity of 4 METs. The baseline ECG demonstrated atrial fibrillation; low voltage QRS. The peak exercise ECG demonstrated somatic/motion artifact with no obvious ECG changes. There were no cardiac dysrhythmias pretest, during exercise, or recovery. The functional capacity was considered decreased. There was no complaint of chest discomfort during exercise or recovery. The examination was discontinued secondary to dyspnea. Impression: 1. Technically adequate (percent predicted maximal heart rate greater than 85%) exercise tolerance test 2. Peak exercise ECG with somatic/motion artifact with no obvious ECG changes 3. There were no cardiac dysrhythmias pretest, during exercise, or recovery 4. Nuclear images pending Myocardial perfusion imaging study: Technique: The patient was injected with 14.9 mCi of technetium 99m Cardiolite and subsequently rest SPECT Cardiolite nuclear imaging was obtained in the horizontal long, vertical long, and short axis views. The patient exercised on a Mitesh protocol for 2 minutes and 22 seconds completing not completing Stage I achieving a peak heart rate of 148 bpm (94 % predicted maximal heart rate) with a peak blood pressure 148/72 mmHg and a peak MET capacity of 4 METs. The patient was injected with a 44.8 mCi of technetium 99m Cardiolite and subsequently stress SPECT Cardiolite nuclear imaging was obtained in the horizontal long, vertical long, and short axis views. A gated Cardiolite study at peak stress was obtained. Interpretation: Rest and stress SPECT Cardiolite nuclear imaging status post realignment, normalization, and attenuation correction, demonstrates the appearance of relative uniform tracer uptake and myocardial perfusion appearing within normal limits. There is end systolic thickening and brightening. The gated Cardiolite study demonstrates myocardial thickening and inward wall motion. The reported LVEF is 77 %. Impression: 1. Rest and stress SPECT Cardiolite nuclear imaging demonstrate relative uniform tracer uptake and myocardial perfusion appearing within normal limits. 2. The gated Cardiolite study reports an LVEF of 77 %. Holter monitor: 01-21-2020: Atrial fibrillation Rare PVCs Labs: No Data to Display Diagnostics: Electrocardiogram Chest X-Ray Pulmonary: No Data to Display Assessment and Plan Assessment and Plan (1) Persistent atrial fibrillation: Status: Acute Orders: Orders: 12 Lead EKG performed by [facility] 08/12/21 Donna Douglas NP, UNDER WATER ASSISTANT-C: Patient has a history of persistent atrial fibrillation. She appears to be in an irregularly irregular rhythm on exam today. She is asymptomatic at this time. Cardioversion and antiarrhythmic were discussed with patient. At this time, she will continue metoprolol 50 mg daily, and apixaban 5 mg twice daily. She will continue to monitor her heart rate at home. (2) Essential hypertension: Status: Chronic Plan - Heather Douglas UNDER WATER ASSISTANT, UNDER WATER ASSISTANT-C: Patient has a history of hypertension. Her blood pressure is well controlled at this time. She will continue with her current medical therapy: Hydrochlorothiazide 12.5 mg daily, and lisinopril 10 mg twice daily. She will continue to monitor her blood pressures at home, and notify our office of any persistent high or low blood pressure readings. (3) Mixed hyperlipidemia: Status: Chronic Plan - Heather Douglas UNDER WATER ASSISTANT, UNDER WATER ASSISTANT-C: Patient has a history of mixed hyperlipidemia. Most recent lipid panel from 02/01/2021: Cholesterol 170, HDL 66, LDL 73, triglycerides 156. She will continue with pravastatin 80 mg daily, along with aggressive risk factor and lifestyle modifications. Plan Details Additional Comments: Patient will follow up in 6-8 weeks, or sooner if needed. Thank you for allowing me to participate in the care of your patient. Please don't hesitate to call if any issues arise. This note was generated using a voice recognition system and there may be incorrect words, spelling, or punctuation that were not noted when reviewing the office note prior to saving. Follow Up: 6-8 weeks (UNDER WATER ASSISTANT/PA) Coding Level of Care Code Off vis,est,level 3 Diagnoses Persistent atrial fibrillation I48.19 Essential hypertension I10 Mixed hyperlipidemia E78.2 Coding Level of Care Code Off vis,est,level 3 Diagnoses Persistent atrial fibrillation I48.19 Essential hypertension I10 Mixed hyperlipidemia E78.2 08/13/21 1649<Electronically signed by Heather Douglas NP UNDER WATER ASSISTANT-C>Date Heather Douglas NP UNDER WATER ASSISTANT-C 08/14/[id number]<Electronically signed by Douglas Zhou MD>Cosigner Signature:Date (if applicable)Douglas Zhou MD CC: Dr. Sivan Weiss MD ~ Assessment & Plan Addt'l Comments I have re-examined the patient. There are no clinical changes since date of exam
--- NOTE | 2021-09-03 12:17 | CARDIOVERS_ITS ---
Cardioversion Cardioversion: Date: 09-03-2021 Procedure: Synchronized Biphasic DC Cardioversion Indications: Atrial fibrillation Consent: Per the Patient Anesthesia: per Dr. Juarez of pulmonology and critical care medicine with propofol 80 mg IV push total Procedure: Synchronized biphasic DC cardioversion: 300 J x 1: Result: Sinus rhythm; PACs Complications: no apparent complications This note was generated with Revenewation software. It may contain incorrect words, spelling, and punctuation that were not noted in checking the note before signing.
--- NOTE | 2021-09-03 14:36 | PCM.OP.PRO ---
Assessment & Plan Assessment/Plan (1) Persistent atrial fibrillation: (2) Gena's disease: (3) Essential hypertension: Procedure Report Date of Procedure: 09/03/21 CONSCIOUS SEDATION REPORT BRIEF HISTORY OF PRESENT ILLNESS: The patient is a 65-year-old female who presented to [facility] for an elective outpatient cardioversion due to underlying atrial fibrillation. The patient reports no PO intake since midnight, but is currently therapeutic on anticoagulation. The patient does not have a history of ALEJANDRA. The patient reports no history of smoking and COPD. The patient denies any recent constitutional symptoms such as fevers, chills, nausea or vomiting. The patient denies previous applicable anesthetic complications. Patient did report taking anticoagulation on the day of the procedure. Patient's last known ejection fraction was 60%. Patient tolerated previous cardioversions well. PHYSICAL EXAMINATION: VITAL SIGNS: Reviewed and were acceptable. GENERAL: The patient is a female, in no apparent distress, speaking in full sentences. HEENT: Normocephalic, atraumatic. Mucous membranes are moist and pink. Good mouth opening noted. Trachea is midline. Good neck mobility. MP IV CHEST: S1, S2 irregularly irregular. No murmurs, rubs or gallops were noted. LUNGS: Clear to auscultation bilaterally without appreciable wheezes, rales or rhonchi. ABDOMEN: Soft, nontender, nondistended. Positive bowel sounds. EXTREMITIES: There is no clubbing, cyanosis or edema. ASA Class: II DESCRIPTION OF PROCEDURE: After confirmation of informed consent, the patient's anesthesia plan was reviewed in detail. Propofol was chosen. Risks and benefits were reviewed and the patient agreed to proceed. At 11:58 AM, the patient was given 40 mg of propofol. The patient required a total of 80 mg of propofol throughout the procedure to achieve appropriate sedation. The patient achieved an appropriate level of sedation and received 1 attempt synchronized cardioversion, at [address] Zhou at the bedside. This was successful in achieving normal sinus rhythm. The patient was monitored until 12:15 PM, at which time the patient reached their baseline mental status and function. The patient tolerated the procedure well. COMPLICATIONS: None ESTIMATED BLOOD LOSS: None RECOMMENDATIONS: Okay to recover in usual fashion. Procedures Pulmonary 9xxxx: [id number] Con Sedation
== END 2021-09-03 23:59 | disposition home or self-care (01) ==
PROVIDERS: PCP Internal Medicine; Visit Provider Internal Medicine Cardiovascular Disease
DX: I48.19 Other persistent atrial fibrillation (principal); R06.02 Shortness of breath; I10 Essential (primary) hypertension; E06.3 Autoimmune thyroiditis; E78.2 Mixed hyperlipidemia; G47.30 Sleep apnea, unspecified; Z79.899 Other long term (current) drug therapy; Z79.01 Long term (current) use of anticoagulants; Z79.890 Hormone replacement therapy
CPT/HCPCS: 92960; 93005; J7040

== ENCOUNTER → 2021-12-23 | Outpatient (CLI) | payer MEDICARE, SELFPAY ==
--- NOTE | 2021-12-23 10:26 | BI_ITS ---
MAMMOGRAPHY - BILATERAL SCREENING REASON FOR EXAM: Female, 66 years old. Routine annual screening examination. PERTINENT HISTORY: Non-contributory. TECHNIQUE: Digital bilateral breast shahzad (3D mammographic acquisition) in the CC and MLO projections. 2-D mediolateral oblique (MLO) and craniocaudad (CC) views of both breasts were obtained. CAD: Full Field Digital Mammography with Computer Added Detection was performed. COMPARISON: Comparison is made with prior study dated 07/11/2020. FINDINGS: Breast Composition: The breasts are almost entirely fatty. There are no dominant masses or suspicious calcifications. Stable benign-appearing bilateral axillary nodes. No other significant abnormalities are identified. There has been no significant change since the prior study. BI/SCRN MAMM (CAD)W/SHAHZAD BILAT IMPRESSION: Stable bilateral screening mammogram. Yearly follow-up mammogram recommended. (A) ASSESSMENT CATEGORY: BIRADS Category 2: Benign. A letter regarding these results will be sent to the patient by the facility within 30 days. Approximately 10% of breast cancers are not detected by mammography. A normal mammogram should not delay biopsy of a clinically suspicious abnormality. [id number] Electronically Signed: Billy Mcallister MD at 11:50 EDT ,
--- NOTE | 2021-12-23 10:29 | BD_ITS ---
STUDY: DUAL ENERGY X-RAY ABSORPTIOMETRY / DXA REASON FOR EXAM: Female, 66 years old. Post menopausal TECHNIQUE: Bone Mineral Density (BMD) measurements of lumbar spine and bilateral hips were obtained. COMPARISON: None. FINDINGS: Lumbar Spine (L1-L4): g/cm2 (0.904) / T-score (-1.4) / Z-score (0.5) Findings are suggestive of osteopenia with a low fracture risk. Left Femur Total: g/cm2 (0.893) / T-score (-0.4) / Z-score (0.9) Left Femoral Neck: g/cm2 (0.552) / T-score (-2.7) / Z-score (-1.1) Right Femur Total: g/cm2 (1.008) / T-score (0.5) / Z-score (1.8) Right Femoral Neck: g/cm2 (0.753) / T-score (-0.9) / Z-score (0.7) BD/Dexa Bone Density Study IMPRESSION: The patient is considered osteoporotic as outlined below according to World Bo Organization (WHO) criteria with a high fracture risk. Reference Information: The T-score is the number of standard deviations above or below the standard which is normal for young adults at their peak bone mineral density. The World Health Organization (WHO) interprets the T-scores as follows: Above -1 Normal bone density Between -1 and -2.5 Osteopenia Equal to / or below -2.5 Osteoporosis As a practical clinical guideline, osteopenia may be graded as follows: Mild -1 through -1.5 Moderate -1.6 through -2.0 Severe -2.1 through -2.4 The Z-score is the number of standard deviations above or below age-matched controls. A Z-score of less than -1.5 would be considered abnormal. References: 1. NIH Osteoporosis and Related Bone Diseases www osteo.org 2. International Society for Clinical Densitometry www iscd.org 3. National Osteoporosis Foundation www nof.org Electronically Signed: Billy Mcallister MD at 15:07 EDT ,
== END | disposition home or self-care (01) ==
LOC: OPBD 10:24
PROVIDERS: PCP Internal Medicine; Visit Provider Internal Medicine
DX: Z12.31 Encounter for screening mammogram for malignant neoplasm of breast (principal); M81.0 Age-related osteoporosis without current pathological fracture; M85.80 Other specified disorders of bone density and structure, unspecified site; Z78.0 Asymptomatic menopausal state
CPT/HCPCS: 77063; 77067; 77080

== ENCOUNTER → 2022-01-14 | Outpatient (CLI) | payer MEDICARE, SELFPAY ==
[2022-01-14 12:43] LABS: Anion Gap 4 (5-15); BUN 18 mg/dL (7-18); BUN/Creat Ratio 24.7 RATIO (10-20); Calcium,Total 9.5 mg/dL (8.5-10.1); Chloride 106 mmol/L (98-107); Creatinine, Serum 0.73 mg/dL (0.55-1.02); EST Glomerular Filtration Rate 85 mL/min (>60); Est Glom Filt Rate - Afr Amer 103 mL/min (>60); Glucose 100 mg/dL (74-106); Potassium 4.1 mmol/L (3.5-5.1); Sodium Level 139 mmol/L (136-145)
[2022-01-14 12:51] LABS: Vitamin D,25 Hydroxy 29.5 ng/mL
== END | disposition home or self-care (01) ==
LOC: BIMLAB 08:59
PROVIDERS: PCP Internal Medicine; Referring Provider Internal Medicine; Visit Provider Internal Medicine
DX: M81.0 Age-related osteoporosis without current pathological fracture (principal); E55.9 Vitamin D deficiency, unspecified
CPT/HCPCS: 36415; 80048; 82306

== ENCOUNTER → 2022-02-24 | Outpatient (CLI) | payer MEDICARE, SELFPAY ==
[2022-02-24 13:02] LABS: AST(SGOT) 20 U/L (15-37); Alanine Aminotransfer ALT/SGPT 27 U/L (13-56); Albumin, Serum 3.6 g/dL (3.2-5.0); Alkaline Phosphatase 64 U/L (45-117); Cholesterol 186 mg/dL (200); Globulin 3.4 g/dL (2.2-4.2); High Density Lipoprotein 87 mg/dL; Triglycerides 122 mg/dL; Very Low Density Lipoprotein 24 mg/dL (5-40)
== END | disposition home or self-care (01) ==
PROVIDERS: PCP Internal Medicine; Referring Provider Nurse Practitioner Gerontology; Visit Provider Nurse Practitioner Gerontology
DX: E78.2 Mixed hyperlipidemia (principal)
CPT/HCPCS: 36415; 80061; 80076

== ENCOUNTER → 2022-04-05 | Outpatient (CLI) | payer MEDICARE, SELFPAY ==
--- NOTE | 2022-04-05 14:55 | ECHOD_ITS ---
Reason For Study: AFIB Procedure This was a 2D Doppler, Color Flow transthoracic echocardiogram. The study was technically difficult. Definity deferred due prior reaction. Exam performed in department. Left Ventricle Left ventricular systolic function is normal. The estimated ejection fraction is 65 %. Diastolic function is indeterminate. No regional wall motion abnormalities noted. Right Ventricle Normal RV size. Normal systolic function. Atria The left atrium is moderately enlarged. Normal right atrium. No doppler evidence for ASD. Mitral Valve There is no mitral annular calcification. Normal mitral valve. Trivial mitral valve insufficiency. Tricuspid Valve Normal tricuspid valve. Trivial tricuspid valve insufficiency. Right ventricular systolic pressure estimated to be 22 mmHg. Aortic Valve Trisinus/trileaflet aortic valve. Mild focal aortic valve calcification. Pulmonic Valve The pulmonic valve is not well visualized. Great Vessels Normal sized aortic root. Pericardium/Pleural No pericardial effusion. MMode/2D Measurements & Calculations Ao root diam: 3.3 cm LAV(MOD-sp4): 83.6 ml LA A4 area: 27.5 cm2 LA dimension(2D): 5.4 cm RA A4 area: 16.6 cm2 Doppler Measurements & Calculations MV E max christoph: 137.1 cm/sec MV V2 max: 126.9 cm/sec Ao V2 max: 150.0 cm/sec MV max P.5 mmHg Ao max P.0 mmHg MV V2 mean: 72.6 cm/sec Ao V2 mean: 106.6 cm/sec MV mean P.6 mmHg Ao mean P.2 mmHg MV V2 VTI: 22.7 cm Ao V2 VTI: 24.1 cm LV V1 max: 123.9 cm/sec PA V2 max: 107.6 cm/sec TR max christoph: 220.3 cm/sec LV V1 max P.2 mmHg PA V2 mean: 84.4 cm/sec TR max P.4 mmHg LV V1 mean P.8 mmHg LV V1 mean: 75.8 cm/sec LV V1 VTI: 16.3 cm ECHO/Echo Complete Interpretation Summary Left ventricular systolic function is normal. The estimated ejection fraction is 65 %. The left atrium is moderately enlarged. Trivial mitral valve insufficiency. Trivial tricuspid valve insufficiency. Mild focal aortic valve calcification. Right ventricular systolic pressure estimated to be 22 mmHg. Diastolic function is indeterminate. Ordering Physician: eHather Douglas Referring Physician: Heather Douglas Performed By: Hina Grover RCS
== END | disposition home or self-care (01) ==
LOC: CVS 14:55
PROVIDERS: PCP Internal Medicine; Referring Provider Nurse Practitioner Gerontology; Visit Provider Nurse Practitioner Gerontology
DX: I48.19 Other persistent atrial fibrillation (principal)
CPT/HCPCS: 93306

== ENCOUNTER → 2022-05-16 | Outpatient (CLI) | payer MEDICARE, SELFPAY | END | disposition home or self-care (01) | LOC: PSN 08:30 | PROVIDERS: PCP Internal Medicine; Visit Provider Internal Medicine Cardiovascular Disease | DX: I48.0 Paroxysmal atrial fibrillation (principal) | CPT/HCPCS: 93225; 93226 ==

== ENCOUNTER → 2022-08-25 | Outpatient (CLI) | payer MEDICARE, SELFPAY ==
[2022-08-25 13:27] LABS: AST(SGOT) 24 U/L (15-37); Alanine Aminotransfer ALT/SGPT 31 U/L (13-56); Albumin, Serum 3.7 g/dL (3.2-5.0); Alkaline Phosphatase 39 U/L (45-117); Bilirubin, Direct 0.23 mg/dL (0.00-0.30); Cholesterol 214 mg/dL (200); Globulin 3.2 g/dL (2.2-4.2); High Density Lipoprotein 69 mg/dL; Protein, Total 6.9 g/dL (6.4-8.2); Triglycerides 180 mg/dL; Very Low Density Lipoprotein 36 mg/dL (5-40)
[2022-08-25 14:54] LABS: Absolute Lymphocyte Count 1.54 X10^3/uL (0.83-4.51); Absolute Neutrophil Count 3.8 X10^3/uL (2.0-7.7); Basophil# 0.06 X10^3/uL; Eosinophil# 0.14 X10^3/uL; Eosinophils% 2.3 % (0-5); Hematocrit 45.1 % (37-47); Hemoglobin 14.9 g/dL (12.0-15.0); Lymphocyte # 1.54 X10^3/ul (0.83-4.51); Lymphocyte % 25.1 % (19-41); Mean Corpuscular Hgb 29.9 pg (27.0-32.0); Mean Corpuscular Volume 90.4 fL (81-99); Mean Platelet Vol. 10.4 fl (6.2-12.0); Monocyte# 0.56 X10^3/uL; Monocyte% 9.1 % (0-10); NRBC Flagged by Analyzer 0 % (0-5); Neutrophil % 61.8 % (47-70); Platelet Count 321 K/mm3 (150-450); RBC Distribution Width CV 12.5 % (11.6-14.6); RBC Distribution Width SD 41.1 fl (35.1-43.9); Red Blood Count 4.99 M/mm3 (4.2-5.4); White Blood Count 6.1 K/mm3 (4.4-11.0)
[2022-08-25 16:10] LABS: Anion Gap 6 (5-15); BUN 14 mg/dL (7-18); BUN/Creat Ratio 19.2 RATIO (10-20); Calcium,Total 9.8 mg/dL (8.5-10.1); Chloride 104 mmol/L (98-107); Creatinine, Serum 0.73 mg/dL (0.55-1.02); EST Glomerular Filtration Rate 85 mL/min (>60); Est Glom Filt Rate - Afr Amer 103 mL/min (>60); Glucose 100 mg/dL (74-106); Potassium 4.4 mmol/L (3.5-5.1); Sodium Level 138 mmol/L (136-145); Thyroid Stim Hormone (TSH) 1.81 uIU/mL (0.358-3.74)
[2022-08-25 16:25] LABS: Vitamin D,25 Hydroxy 41.7 ng/mL
== END | disposition home or self-care (01) ==
LOC: BIMLAB 10:14
PROVIDERS: PCP Internal Medicine; Referring Provider Internal Medicine Cardiovascular Disease; Visit Provider Internal Medicine Cardiovascular Disease
DX: I10 Essential (primary) hypertension (principal); E78.00 Pure hypercholesterolemia, unspecified; E55.9 Vitamin D deficiency, unspecified
CPT/HCPCS: 36415; 80048; 80061; 80076; 82306; 84443; 85025

== ENCOUNTER → 2022-12-22 | Outpatient (CLI) | payer MEDICARE, SELFPAY ==
[2022-12-22 16:48] LABS: Anion Gap 6 (5-15); BUN 13 mg/dL (7-18); BUN/Creat Ratio 16.9 RATIO (10-20); Calcium,Total 9.9 mg/dL (8.5-10.1); Chloride 104 mmol/L (98-107); Creatinine, Serum 0.77 mg/dL (0.55-1.02); EST Glomerular Filtration Rate 80 mL/min (>60); Est Glom Filt Rate - Afr Amer 97 mL/min (>60); Glucose 103 mg/dL (74-106); Magnesium 2.1 mg/dL (1.6-2.6); Potassium 4.1 mmol/L (3.5-5.1); Sodium Level 141 mmol/L (136-145)
== END | disposition home or self-care (01) ==
LOC: BIMLAB 15:03
PROVIDERS: PCP Internal Medicine; Referring Provider Internal Medicine; Visit Provider Internal Medicine
DX: I48.19 Other persistent atrial fibrillation (principal)
CPT/HCPCS: 36415; 80048; 83735

== ENCOUNTER → 2022-12-27 | Outpatient (CLI) | payer MEDICARE, SELFPAY ==
--- NOTE | 2022-12-27 12:54 | RAD_ITS ---
STUDY: X-RAY - RIGHT SHOULDER REASON FOR EXAM: Female, 67 years old. Right shoulder pain. TECHNIQUE: 4 view(s) of the shoulder. COMPARISON: None. FINDINGS: Osteopenia. Normal glenohumeral articulation. Mild arthrosis of the AC joint. Normal acromion. Normal humeral head and visualized proximal humerus. Normal soft tissues. Normal visualized pulmonary apex. RAD/Shoulder min 2 Views IMPRESSION: Osteopenia with mild arthrosis of the AC joint. No acute abnormality or erosive changes. Electronically Signed: Sharath Allen MD at 15:48 EDT ,
== END | disposition home or self-care (01) ==
LOC: MTRAD 12:53
PROVIDERS: PCP Internal Medicine; Referring Provider Internal Medicine; Visit Provider Internal Medicine
DX: M25.511 Pain in right shoulder (principal)
CPT/HCPCS: 73030

== ENCOUNTER 2023-01-06 14:21 | Outpatient (RCR) | payer MEDICARE, SELFPAY ==
--- NOTE | 2023-01-09 09:57 | HP.PTEVAL ---
Patient's Visit Information Visit Information Visit Information: JACKELYN HOBBS is a 67 year old F referred to Physical Therapy by Dr. Sivan Weiss MD with a diagnosis of R shoulder pain. Date of Evaluation: 01/06/23 Physical Therapist: Albert Collado DPT Visit Plan Frequency: 2x /Week Duration: 4 Weeks Plan: Start with end range AAROM OF R shoulder, add in scapular and periscapular strengthening. Slowly loading of RTC as tolerated. Pt. given HEP for above exercises this date. Subjective Subjective: Pt. is here today for her initial evaluation with diagnosis of chronic R shoulder pain. Pt. reports having intermittent pain in her R shoulder, especially with reaching and lifting. She denies N/T in either shoulder. 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 Pt. has not tried any exercises at this point in time. Pt. reports no mech of injury. She reports pain at posterior aspect of R sub acromial space into R shoulder blade at times. Pt. reports having some pain with computer work as well when she has to reach across her body and with reaching out to grab objects. Pt. is hopeful to reduce symptoms in order to get back to all work and household activities without limitations. Pain R shoulder: Pain Intensity (Out of 10): 2 Pain Intensity Range: 0 and 5 Objective Objective: POSTURE: Pt. has FH posture with rounded shoulders. Pt. is able to improve, but not fully correct. PALPATION: Pt. has tenderness at posterior/lateral aspect of R subacromial space. NEURO: normal throughout BUEs. ROM: CERVICAL SPINE: min loss throughout without increase in symptoms. R shoulder: flexion 170deg mild increase NW, abd 160ded mild increase NW, functional ER C5 mild increase NW, IR L4 mild increase NW. L shoulder: full without pain throughout. MMT: R shoulder: flexion 5-/5, abd 4+/5, ext 5/5, ER 4+/5, IR 5/5. L shoulder: 5/5 throughout. Pt. did not have pain with any testing today. Cervical spine: 5/5 iso. Special Tests C/S Radiculapathy - Left Spurlings: Negative C/S Radiculapathy - Right Spurlings: Negative C/S Radiculapathy - Left Cervical distraction: Negative C/S Radiculapathy - Right Cervical distraction: Negative C/S Radiculapathy - Left Relief test: Negative R Shoulder External Rotation Lag Test - RC Tear: Negative R Shoulder Drop Sign - IS Test: Negative R Shoulder Empty Can - SS: Negative R Shoulder Belly Press - SupScap: Negative R Shoulder Neer - Impingement: Positive R Shoulder Sanford Mahesh - Impingement: Positive R Shoulder Biceps Load Test - Labrum: Negative R Shoulder Speeds Test - Labrum/Biceps: Negative Balance/Special Test Scores Quick DASH Score: 25.0000 Goals Goal 1:: LTG: Pt. to be I with HEP. Goal Time Frame: 4-6 Weeks Goal 2:: STG: pt. to sleep throughout the night without increase in symptoms. Goal Time Frame: 2-4 Weeks Goal 3:: LTG: Pt. to have increased R UE strength symmetrical to L side without increase in symptoms. Goal Time Frame: 4-6 Weeks Goal 4:: LTG: Pt. to complete all work and recreational activities without increase in R shoulder pain. Goal Time Frame: 4-6 Weeks Rehabilitation Potential Physical Therapy Diagnosis: Pt. has signs and symptoms consistent with R shoulder pain. Pt. did not have any + signs of RTC tear, but did have some + signs R shoulder impingement with irritability. Pt. most likely had a RTC tendinitis. Pt. would benefit from PT to work on end range of motion and strengthening her periscapular musculature, progressing to RTC loading. Rehabilitation Potential: Excellent Anticipated Interventions Patient/Client Instruction: Educate patient on: Condition, Plan of Care, Risk Factors and Benefits of Fitness Program For the Purpose of:: To facilitate caregiver knowledge, To improve self management, To prevent re-injury, To improve ability to perform tasks related to life management and To improve tolerance to ADL's Therapeutic Exercise to Include: Strength training, Endurance training, Flexibilty training, Passive ROM, Active ROM and Scapular Strength/Stabilization For the Purpose of:: To decrease pain, To increase ROM, To improve nutrient delivery to tissue, To increase oxygenation perfusion, To improve muscle performance and motor function, To increase tolerance to activity/condition/position, To improve performance and independence with ADL's, To improve ability of physical actions for home/community/work/leisure and To decrease soft tissue restriction Text: Thank you for the opportunity to evaluate your patient. For Medicare and Medicare HMO plans, please review the plan of care and approve it. It will need to be FAXED BACK to us at [phone] for Medicare purposes. For Medicare only, by signing this I certify the plan of care. Please let me know if there are questions or concerns regarding this plan of care. Physician Signature: Date:
== END 2023-01-06 19:00 | disposition home or self-care (01) ==
LOC: PT 14:21
PROVIDERS: PCP Internal Medicine; Referring Provider Internal Medicine; Visit Provider Internal Medicine
DX: M25.511 Pain in right shoulder (principal); G89.29 Other chronic pain
CPT/HCPCS: 97161

== ENCOUNTER → 2023-01-06 | Outpatient (CLI) | payer MEDICARE, SELFPAY ==
--- NOTE | 2023-01-06 09:10 | BI_ITS ---
MAMMOGRAPHY - BILATERAL SCREENING REASON FOR EXAM: Female, 67 years old. Routine annual screening examination. PERTINENT HISTORY: Non-contributory. TECHNIQUE: Digital bilateral breast shahzad (3D mammographic acquisition) in the CC and MLO projections. 2-D mediolateral oblique (MLO) and craniocaudad (CC) views of both breasts were obtained. CAD: Full Field Digital Mammography with Computer Added Detection was performed. COMPARISON: Comparison is made with prior study dated December 23, 2021 and July 11, 2020. FINDINGS: Breast Composition: The breasts are almost entirely fatty. There are no dominant masses or suspicious calcifications. No other significant abnormalities are identified. There has been no significant change since the prior study. BI/SCRN MAMM (CAD)W/SHAHZAD BILAT IMPRESSION: Stable bilateral screening mammogram. Yearly follow-up mammogram recommended. (A) ASSESSMENT CATEGORY: BIRADS Category 1: Negative. A letter regarding these results will be sent to the patient by the facility within 30 days. Approximately 10% of breast cancers are not detected by mammography. A normal mammogram should not delay biopsy of a clinically suspicious abnormality. [id number] Electronically Signed: Billy Mcallister MD at 10:35 EDT ,
== END | disposition home or self-care (01) ==
LOC: OPBI 09:08
PROVIDERS: PCP Internal Medicine; Referring Provider Internal Medicine; Visit Provider Internal Medicine
DX: Z12.31 Encounter for screening mammogram for malignant neoplasm of breast (principal)
CPT/HCPCS: 77063; 77067

== ENCOUNTER → 2023-03-23 | Outpatient (CLI) | payer MEDICARE, SELFPAY ==
[2023-03-23 13:11] LABS: AST(SGOT) 23 U/L (15-37); Alanine Aminotransfer ALT/SGPT 36 U/L (13-56); Albumin, Serum 3.5 g/dL (3.2-5.0); Alkaline Phosphatase 40 U/L (45-117); Bilirubin, Direct 0.28 mg/dL (0.00-0.30); CPK Total, Creatine Kinase 48 U/L (26-192); Cholesterol 172 mg/dL (200); Globulin 3.5 g/dL (2.2-4.2); High Density Lipoprotein 68 mg/dL; Triglycerides 162 mg/dL; Very Low Density Lipoprotein 32 mg/dL (5-40)
== END | disposition home or self-care (01) ==
LOC: BIMLAB 10:07
PROVIDERS: PCP Internal Medicine; Referring Provider Internal Medicine Cardiovascular Disease; Visit Provider Internal Medicine Cardiovascular Disease
DX: I10 Essential (primary) hypertension (principal); E78.5 Hyperlipidemia, unspecified
CPT/HCPCS: 36415; 80061; 80076; 82550

== ENCOUNTER → 2023-07-20 | Outpatient (CLI) | payer MEDICARE, SELFPAY ==
[2023-07-20 17:01] LABS: Absolute Lymphocyte Count 1.65 X10^3/uL (0.83-4.51); Absolute Neutrophil Count 5.4 X10^3/uL (2.0-7.7); Basophil# 0.06 X10^3/uL; Basophil% 0.7 % (0-1); Eosinophil# 0.13 X10^3/uL; Eosinophils% 1.6 % (0-5); Hematocrit 44.5 % (37-47); Hemoglobin 14.3 g/dL (12.0-15.0); Lymphocyte # 1.65 X10^3/ul (0.83-4.51); Lymphocyte % 20.5 % (19-41); Mean Corp Hgb Conc 32.1 g/dL (32-36); Mean Corpuscular Hgb 28.9 pg (27.0-32.0); Mean Corpuscular Volume 90.1 fL (81-99); Mean Platelet Vol. 10.3 fl (6.2-12.0); Monocyte# 0.76 X10^3/uL; Monocyte% 9.4 % (0-10); NRBC Flagged by Analyzer 0 % (0-5); Neutrophil # 5.42 X10^3/uL (2.7-7.7); Neutrophil % 67.3 % (47-70); Platelet Count 314 K/mm3 (150-450); RBC Distribution Width CV 12.9 % (11.6-14.6); RBC Distribution Width SD 42.2 fl (35.1-43.9); Red Blood Count 4.94 M/mm3 (4.2-5.4); White Blood Count 8.1 K/mm3 (4.4-11.0)
[2023-07-20 17:28] LABS: ALB/GLOB Ratio 1.2 RATIO (0.9-2.4); AST(SGOT) 25 U/L (15-37); Alanine Aminotransfer ALT/SGPT 33 U/L (13-56); Albumin, Serum 3.6 g/dL (3.2-5.0); Alkaline Phosphatase 43 U/L (45-117); Anion Gap 5 (5-15); BUN 10 mg/dL (7-18); BUN/Creat Ratio 12.9 RATIO (10-20); Calcium,Total 9.6 mg/dL (8.5-10.1); Chloride 111 mmol/L (98-107); Creatinine, Serum 0.77 mg/dL (0.55-1.02); EST Glomerular Filtration Rate 79 mL/min (>60); Est Glom Filt Rate - Afr Amer 95 mL/min (>60); Globulin 3.1 g/dL (2.2-4.2); Glucose 100 mg/dL (74-106); Potassium 4.1 mmol/L (3.5-5.1); Protein, Total 6.7 g/dL (6.4-8.2); Sodium Level 143 mmol/L (136-145); Thyroid Stim Hormone (TSH) 1.82 uIU/mL (0.358-3.74); Uric Acid 5.9 mg/dL (2.6-6.0)
== END | disposition home or self-care (01) ==
LOC: BIMLAB 14:58
PROVIDERS: PCP Internal Medicine; Referring Provider Internal Medicine; Visit Provider Internal Medicine
DX: M19.90 Unspecified osteoarthritis, unspecified site (principal); E03.9 Hypothyroidism, unspecified; I10 Essential (primary) hypertension
CPT/HCPCS: 36415; 80053; 84443; 84550; 85025

== ENCOUNTER → 2023-09-27 | Outpatient (CLI) | payer MEDICARE, SELFPAY | END | disposition home or self-care (01) | LOC: SL 19:52 | PROVIDERS: PCP Internal Medicine; Referring Provider Internal Medicine Critical Care Medicine; Visit Provider Internal Medicine Critical Care Medicine | DX: G47.33 Obstructive sleep apnea (adult) (pediatric) (principal) | CPT/HCPCS: 95811 ==

== ENCOUNTER → 2023-11-02 | Outpatient (CLI) | payer MEDICARE, SELFPAY ==
[2023-11-02 12:28] LABS: AST(SGOT) 27 U/L (15-37); Alanine Aminotransfer ALT/SGPT 30 U/L (13-56); Albumin, Serum 3.7 g/dL (3.2-5.0); Alkaline Phosphatase 40 U/L (45-117); Cholesterol 189 mg/dL (200); Globulin 3.3 g/dL (2.2-4.2); High Density Lipoprotein 72 mg/dL; Triglycerides 135 mg/dL; Very Low Density Lipoprotein 27 mg/dL (5-40)
== END | disposition home or self-care (01) ==
PROVIDERS: PCP Internal Medicine; Visit Provider Nurse Practitioner Gerontology
DX: E78.00 Pure hypercholesterolemia, unspecified (principal)
CPT/HCPCS: 36415; 80061; 80076

== ENCOUNTER → 2023-12-28 | Outpatient (CLI) | payer MEDICARE, SELFPAY ==
--- NOTE | 2023-12-28 10:28 | BD_ITS ---
STUDY: DUAL ENERGY X-RAY ABSORPTIOMETRY / DXA REASON FOR EXAM: Female, 68 years old. Osteoporosis TECHNIQUE: Bone Mineral Density (BMD) measurements of lumbar spine and bilateral hips were obtained. COMPARISON: Comparison is made with prior study dated December 23, 2021. FINDINGS: Lumbar Spine (L1-L4): g/cm2 (0.894) / T-score (-1.3) / Z-score (0.7) Findings are suggestive of osteopenia with a low fracture risk. Left Femur Total: g/cm2 (1.027) / T-score (0.7) / Z-score (2.1) Left Femoral Neck: g/cm2 (0.753) / T-score (-0.9) / Z-score (0.8) Right Femur Total: g/cm2 (1.149) / T-score (1.7) / Z-score (3.1) Right Femoral Neck: g/cm2 (0.868) / T-score (0.2) / Z-score (1.9) The T-Scores on the most recent prior examination were: Lumbar Spine (L1-L4): There has been worsening of bone density since the previous examination. Left Femur Total: which represents an improvement of 15%. Right Femur Total: which represents an improvement of 14%. BD/Dexa Bone Density Study IMPRESSION: The patient is considered osteopenic as outlined below according to World Bo Organization (WHO) criteria with a low fracture risk. There has been improvement of bone density since the previous examination. Reference Information: The T-score is the number of standard deviations above or below the standard which is normal for young adults at their peak bone mineral density. The World Health Organization (WHO) interprets the T-scores as follows: Above -1 Normal bone density Between -1 and -2.5 Osteopenia Equal to / or below -2.5 Osteoporosis As a practical clinical guideline, osteopenia may be graded as follows: Mild -1 through -1.5 Moderate -1.6 through -2.0 Severe -2.1 through -2.4 The Z-score is the number of standard deviations above or below age-matched controls. A Z-score of less than -1.5 would be considered abnormal. References: 1. NIH Osteoporosis and Related Bone Diseases www osteo.org 2. International Society for Clinical Densitometry www iscd.org 3. National Osteoporosis Foundation www nof.org Electronically Signed: Billy Mcallister MD at 10:45 EDT ,
== END | disposition home or self-care (01) ==
LOC: OPBD 10:25
PROVIDERS: PCP Internal Medicine; Referring Provider Internal Medicine; Visit Provider Internal Medicine
DX: M81.0 Age-related osteoporosis without current pathological fracture (principal)
CPT/HCPCS: 77080

== ENCOUNTER → 2024-01-19 | Outpatient (CLI) | payer MEDICARE, SELFPAY ==
--- NOTE | 2024-01-19 10:45 | BI_ITS ---
MAMMOGRAPHY - BILATERAL SCREENING REASON FOR EXAM: Female, 68 years old. Routine annual screening examination. PERTINENT HISTORY: Non-contributory. TECHNIQUE: Digital bilateral breast shahzad (3D mammographic acquisition) in the CC and MLO projections. 2-D mediolateral oblique (MLO) and craniocaudad (CC) views of both breasts were obtained. CAD: Full Field Digital Mammography with Computer Added Detection was performed. COMPARISON: Comparison Mammogram study is dated January 06, 2023 and December 23, 2021. FINDINGS: Breast Composition: The breasts are almost entirely fatty. There are no dominant masses or suspicious calcifications. No other significant abnormalities are identified. There has been no significant change since the prior study. BI/SCRN MAMM (CAD)W/SHAHZAD BILAT IMPRESSION: Stable bilateral screening mammogram. Yearly follow-up mammogram recommended. (A) ASSESSMENT CATEGORY: BIRADS Category 1: Negative. A letter regarding these results will be sent to the patient by the facility within 30 days. Approximately 10% of breast cancers are not detected by mammography. A normal mammogram should not delay biopsy of a clinically suspicious abnormality. [id number] Electronically Signed: Billy Mcallister MD at 12:11 EDT ,
== END | disposition home or self-care (01) ==
LOC: OPBI 10:44
PROVIDERS: PCP Internal Medicine; Referring Provider Internal Medicine; Visit Provider Internal Medicine
DX: Z12.31 Encounter for screening mammogram for malignant neoplasm of breast (principal)
CPT/HCPCS: 77063; 77067

== ENCOUNTER → 2024-02-22 | Outpatient (CLI) | payer MEDICARE, SELFPAY ==
[2024-02-22 17:12] LABS: Anion Gap 7 (5-15); BUN 12 mg/dL (7-18); BUN/Creat Ratio 15.2 RATIO (10-20); Calcium,Total 10.2 mg/dL (8.5-10.1); Chloride 104 mmol/L (98-107); Creatinine, Serum 0.79 mg/dL (0.55-1.02); EST Glomerular Filtration Rate 77 mL/min (>60); Est Glom Filt Rate - Afr Amer 93 mL/min (>60); Glucose 96 mg/dL (74-106); Potassium 4.8 mmol/L (3.5-5.1); Sodium Level 140 mmol/L (136-145)
== END | disposition home or self-care (01) ==
LOC: BIMLAB 14:58
PROVIDERS: PCP Internal Medicine; Referring Provider Internal Medicine; Visit Provider Internal Medicine
DX: I10 Essential (primary) hypertension (principal); E03.9 Hypothyroidism, unspecified
CPT/HCPCS: 36415; 80048; 84443

== ENCOUNTER → 2024-04-12 | Outpatient (CLI) | payer MEDICARE, SELFPAY ==
[2024-04-12 10:18] LABS: Hematocrit 44.2 % (37-47); Hemoglobin 14.7 g/dL (12.0-15.0); Mean Corp Hgb Conc 33.3 g/dL (32-36); Mean Corpuscular Hgb 29.3 pg (27.0-32.0); Mean Corpuscular Volume 88.2 fL (81-99); Mean Platelet Vol. 9.4 fl (6.2-12.0); Platelet Count 317 K/mm3 (150-450); RBC Distribution Width CV 12.5 % (11.6-14.6); RBC Distribution Width SD 40.1 fl (35.1-43.9); Red Blood Count 5.01 M/mm3 (4.2-5.4); White Blood Count 6.7 K/mm3 (4.4-11.0)
== END | disposition home or self-care (01) ==
LOC: MTLAB 08:46
PROVIDERS: PCP Internal Medicine; Referring Provider Internal Medicine Cardiovascular Disease; Visit Provider Internal Medicine Cardiovascular Disease
DX: I48.21 Permanent atrial fibrillation (principal)
CPT/HCPCS: 36415; 85027

== ENCOUNTER → 2024-07-23 | Outpatient (CLI) | payer MEDICARE, SELFPAY ==
[2024-07-23 16:06] LABS: Hematocrit 45.4 % (37-47); Hemoglobin 15.1 g/dL (12.0-15.0); Mean Corp Hgb Conc 33.3 g/dL (32-36); Mean Corpuscular Hgb 29.8 pg (27.0-32.0); Mean Corpuscular Volume 89.5 fL (81-99); Mean Platelet Vol. 10.3 fl (6.2-12.0); Platelet Count 292 K/mm3 (150-450); RBC Distribution Width CV 12.6 % (11.6-14.6); RBC Distribution Width SD 41.1 fl (35.1-43.9); Red Blood Count 5.07 M/mm3 (4.2-5.4); White Blood Count 7.4 K/mm3 (4.4-11.0)
[2024-07-23 16:19] LABS: Anion Gap 8 (5-15); BUN 11 mg/dL (7-18); BUN/Creat Ratio 13.3 RATIO (10-20); Calcium,Total 10.2 mg/dL (8.5-10.1); Chloride 104 mmol/L (98-107); Creatinine, Serum 0.83 mg/dL (0.55-1.02); EST Glomerular Filtration Rate 73 mL/min (>60); Est Glom Filt Rate - Afr Amer 88 mL/min (>60); Glucose 133 mg/dL (74-106); Potassium 4.3 mmol/L (3.5-5.1); Sodium Level 140 mmol/L (136-145)
== END | disposition home or self-care (01) ==
LOC: MTLAB 12:58
PROVIDERS: PCP Internal Medicine; Referring Provider Internal Medicine Cardiovascular Disease; Visit Provider Internal Medicine Cardiovascular Disease
DX: R60.0 Localized edema (principal); G47.33 Obstructive sleep apnea (adult) (pediatric)
CPT/HCPCS: 36415; 80048; 85027

== ENCOUNTER → 2024-08-22 | Outpatient (CLI) | payer MEDICARE, SELFPAY ==
[2024-08-22 20:56] LABS: AST(SGOT) 34 U/L (<=31); Alanine Aminotransfer ALT/SGPT 29 U/L (<=34); Albumin, Serum 4.3 g/dL (3.4-4.8); Alkaline Phosphatase 46 U/L (35-104); Bilirubin, Direct 0.36 mg/dL (0.00-0.30); Cholesterol 187 mg/dL (<=200); Globulin 2.7 g/dL (2.2-4.2); High Density Lipoprotein 78 mg/dL; Low Density Lipoprotein Calc. 80 mg/dL; Triglycerides 148 mg/dL; Very Low Density Lipoprotein 30 mg/dL (5-40); cholesterol:hdl ratio screen 2.41
== END | disposition home or self-care (01) ==
LOC: BIMLAB 11:54
PROVIDERS: PCP Internal Medicine; Referring Provider Internal Medicine Cardiovascular Disease; Visit Provider Internal Medicine Cardiovascular Disease
DX: E78.00 Pure hypercholesterolemia, unspecified (principal)
CPT/HCPCS: 36415; 80061; 80076

== ENCOUNTER → 2024-09-05 | Outpatient (CLI) | payer MEDICARE, SELFPAY ==
--- NOTE | 2024-09-05 08:52 | VDLE_ITS ---
Reason For Study Reason For Study: Bilateral leg swelling RIGHT LEFT CFV is compressible, spontaneous, phasic, competent CFV is compressible, spontaneous, phasic, competent, and demonstrates normal augmentation. and demonstrates normal augmentation. FV is compressible, spontaneous, phasic, competent FV is compressible, spontaneous, phasic, competent and demonstrates normal augmentation. and demonstrates normal augmentation. POP V is compressible, spontaneous, phasic, competent POP V is compressible, spontaneous, phasic, competent and demonstrates normal augmentation. and demonstrates normal augmentation. T/P Trunk is compressible. T/P Trunk is compressible. PTV is compressible. PTV is compressible. RT PerV is compressible. LT PerV is compressible. SFJ is competent and measures 0.73 cm. SFJ is competent and measures 0.83 cm. GSV proximal thigh measures 0.44 x 0.45 cm. GSV proximal thigh measures 0.42 x 0.42 cm. GSV at knee measures 0.43 x 0.46 cm. GSV above knee is INCOMPETENT for greater than 0.5 GSV INCOMPETENT throughout for greater than 0.5 seconds. seconds. GSV at knee measures 0.28 x 0.36 cm. SSV mid calf is competent and measures 0.26 x 0.25 GSV below knee is competent. cm. ASV at knee is INCOMPETENT for greater than 0.5 Procedure seconds and measures 0.25 x 0.22 cm. This is a venous duplex using B-mode, color flow and SSV mid calf is competent and measures 0.22 x 0.21 spectral Doppler. cm. Exam performed in department. Patient was scanned in reverse Trendelenburg position during reflux assessment. VL/Venous Duplex US - Miguel Extrem Interpretation Summary Deep veins of the bilateral lower extremities are patent and compressible segme ntally. There is no evidence of bilateral lower extremity deep vein thrombosis. The bilateral great saphenous veins appea r patent and compressible segmentally. Positive for reflux in the right great saphenous vein throughout. Positive for reflux in the left great saphenous vein below the knee, accessory saphenous vein at the knee. Ordering Physician: Bennie Omer Referring Physician: Sivan Weiss Performed By: Anila Madera RVT
== END | disposition home or self-care (01) ==
LOC: CVS 08:51
PROVIDERS: PCP Internal Medicine; Referring Provider Internal Medicine Cardiovascular Disease; Visit Provider Internal Medicine Cardiovascular Disease
DX: R60.0 Localized edema (principal); I48.21 Permanent atrial fibrillation
CPT/HCPCS: 93970

== ENCOUNTER → 2024-10-03 | Outpatient (CLI) | payer MEDICARE, SELFPAY ==
--- NOTE | 2024-10-03 13:59 | ECHOD_ITS ---
Reason For Study Reason For Study: LOCALIZED EDEMA Procedure This was a 2D Doppler, Color Flow transthoracic echocardiogram. The study was technically difficult. Due to body habitus & ARRHYTHMIA. Per echocardiogram report (04/05/2022) PT had a previous reaction to Definity. Exam performed in department. Left Ventricle Normal LV size. The left ventricular ejection fraction is 60 %. No regional wall motion abnormalities noted. Right Ventricle Normal RV size. Normal systolic function. Atria The left atrium is mildly enlarged. Normal right atrium. Mitral Valve Normal mitral valve. Tricuspid Valve Normal tricuspid valve. Mild (1+) tricuspid valve insufficiency. Pulmonary artery systolic pressure is 32 mmHg. Aortic Valve Trisinus/trileaflet aortic valve. Mild (1+) eccentric aortic valve insufficiency. Great Vessels Normal aortic root. The pulmonary artery is normal size. Inferior vena cava collapse with respiration. Pericardium/Pleural No pericardial effusion. MMode/2D Measurements & Calculations LVIDd: 4.7 cm IVSd: 1.0 cm Ao root diam: 2.9 cm LVIDs: 2.9 cm LVPWd: 0.90 cm RVDd: 3.3 cm FS: 38.0 % LAV(MOD-bp): 69.4 ml LVAd ap4: 19.6 cm2 SV(MOD-sp4): 28.9 ml LAV(MOD-bp) Indexed: 27.9 ml/m2 LVLd ap4: 6.5 cm SI(MOD-sp4): 11.6 ml/m2 LAV(MOD-sp2): 70.7 ml EDV(MOD-sp4): 48.1 ml LAV(MOD-sp4): 67.6 ml EDV(sp4-el): 50.3 ml LVAs ap4: 11.1 cm2 LVLs ap4: 5.5 cm ESV(MOD-sp4): 19.3 ml ESV(sp4-el): 19.2 ml EF(MOD-sp4): 60.0 % EF(sp4-el): 61.9 % SV(sp4-el): 31.2 ml LA dimension(2D): 4.4 cm LA A4 area: 23.1 cm2 RA A4 area: 17.6 cm2 TAPSE: 1.8 cm Time Measurements MV dec time: 0.19 sec Doppler Measurements & Calculations MV E max jason: 133.0 cm/sec Lat Peak E' Jason: 9.1 cm/sec Med Peak E' Jason: 8.5 cm/sec MV A max jason: 57.8 cm/sec E/E' lat: 14.6 E/E' med: 15.6 MV E/A: 2.3 Ao V2 max: 157.7 cm/sec AI max jason: 403.6 cm/sec LV V1 max: 130.4 cm/sec Ao max P.9 mmHg AI max P.2 mmHg LV V1 max P.8 mmHg Ao V2 mean: 103.3 cm/sec LV V1 mean P.4 mmHg Ao mean P.9 mmHg AI dec slope: 230.2 cm/sec2 LV V1 mean: 86.4 cm/sec Ao V2 VTI: 29.4 cm AI P1/2t: 513.6 msec LV V1 VTI: 25.6 cm AV (velocity ratio): 0.87 PA V2 max: 88.4 cm/sec TR max jason: 273.0 cm/sec PA V2 mean: 57.7 cm/sec TR max P.8 mmHg ECHO/Echo Complete Interpretation Summary Normal LV size. The left ventricular ejection fraction is 60 %. The left atrium is mildly enlarged. Mild (1+) eccentric aortic valve insufficiency. Mild (1+) tricuspid valve insufficiency. Ordering Physician: Bennie Omer Referring Physician: Sivan Weiss Performed By: Lesa Warren, MUNIRACS, RVT
== END | disposition home or self-care (01) ==
LOC: CVS 13:58
PROVIDERS: PCP Internal Medicine; Referring Provider Internal Medicine Cardiovascular Disease; Visit Provider Internal Medicine Cardiovascular Disease
DX: R60.0 Localized edema (principal)
CPT/HCPCS: 93306

== ENCOUNTER → 2024-12-23 | Outpatient (CLI) | payer MEDICARE, SELFPAY ==
[2024-12-23 12:48] LABS: Hematocrit 44.8 % (37-47); Hemoglobin 14.9 g/dL (12.0-15.0); Immature Granulocytes Count 0.040 X10^3/uL (0.0-0.0); Mean Corp Hgb Conc 33.3 g/dL (32-36); Mean Corpuscular Volume 89.8 fL (81-99); Mean Platelet Vol. 10.1 fl (6.2-12.0); NRBC Flagged by Analyzer 0 % (0-5); Platelet Count 294 K/mm3 (150-450); RBC Distribution Width CV 13.1 % (11.6-14.6); RBC Distribution Width SD 42.8 fl (35.1-43.9); Red Blood Count 4.99 M/mm3 (4.2-5.4); White Blood Count 6.3 K/mm3 (4.4-11.0)
[2024-12-23 13:40] LABS: AST(SGOT) 30 U/L (<=31); Alanine Aminotransfer ALT/SGPT 22 U/L (<=34); Albumin, Serum 4.2 g/dL (3.4-4.8); Alkaline Phosphatase 44 U/L (35-104); Anion Gap 13 (5-15); BUN 12 mg/dL (4-19); BUN/Creat Ratio 16.0 RATIO (10-20); Calcium,Total 10.1 mg/dL (7.6-11.0); Carbon Dioxide 23.2 mmol/L (21.0-32.0); Chloride 103 mmol/L (98-108); Cholesterol 191 mg/dL (<=200); Globulin 2.6 g/dL (2.2-4.2); Glucose 101 mg/dL (70-99); Low Density Lipoprotein Calc. 82 mg/dL; Potassium 4.2 mmol/L (3.3-5.1); Triglycerides 132 mg/dL; Very Low Density Lipoprotein 26 mg/dL (5-40); cholesterol:hdl ratio screen 2.32
[2024-12-23 13:41] LABS: Vitamin D,25 Hydroxy 41.1 ng/mL (30-100)
== END | disposition home or self-care (01) ==
LOC: BIMLAB 09:58
PROVIDERS: PCP Internal Medicine; Referring Provider Internal Medicine; Visit Provider Internal Medicine
DX: E03.9 Hypothyroidism, unspecified (principal); M81.0 Age-related osteoporosis without current pathological fracture; I10 Essential (primary) hypertension
CPT/HCPCS: 36415; 80053; 80061; 82306; 84443; 85025

== ENCOUNTER → 2025-01-30 | Outpatient (CLI) | payer MEDICARE, SELFPAY ==
--- NOTE | 2025-01-30 10:45 | BI_ITS ---
EXAM: SCRN MAMM (CAD)W/SHAHZAD BILAT DATE: 01/30/2025 CLINICAL HISTORY: F, Age 69 y/o , BREAST CANCER SCREENING TECHNIQUE: SCRN MAMM (CAD)W/SHAHZAD BILAT COMPARISON: Prior exam(s) dated January 19, 2024.. FINDINGS: TISSUE DENSITY: The breasts are almost entirely fatty. Bilateral Breast Mammographic Findings: No significant masses, calcifications or other abnormalities are identified. No suspicious masses, areas of developing architectural distortion, or suspicious calcifications. There has been no significant interval change. BI/SCRN MAMM (CAD)W/SHAHZAD BILAT IMPRESSION: Stable bilateral screening mammogram. OVERALL FINAL ASSESSMENT BI-RADS 1: NEGATIVE. RECOMMENDATION: Routine annual follow-up in 1 Year A letter with findings and recommendations will be mailed to the patient. Reading Location: [id number]
== END | disposition home or self-care (01) ==
LOC: OPBI 10:39
PROVIDERS: PCP Internal Medicine; Referring Provider Internal Medicine; Visit Provider Internal Medicine
DX: Z12.31 Encounter for screening mammogram for malignant neoplasm of breast (principal)
CPT/HCPCS: 77063; 77067

== ENCOUNTER → 2025-04-16 | Outpatient (CLI) | payer MEDICARE, SELFPAY | END | disposition home or self-care (01) | LOC: MTLAB 12:35 | PROVIDERS: PCP Internal Medicine; Referring Provider Internal Medicine; Visit Provider Internal Medicine | DX: E03.9 Hypothyroidism, unspecified (principal) | CPT/HCPCS: 36415; 84443 ==